=== PATIENT | male | born 1960 | race Caucasian/White ===

== ENCOUNTER → 2016-09-01 | Outpatient (CLI) | payer MEDICARE, OTHER ==
[~2016-09-01] MED LIST: CARV12.52 PO; CLOP75TA PO; ENAL20TA PO; GABA600T2 PO; MELO7.5T29 PO; OXYC-328 PO; ZOLP5TAB PO
--- NOTE | 2016-09-02 02:27 | PAIN ---
DATE OF SERVICE: 09/01/2016 PROGRESS NOTE FOR PAIN CLINIC DIAGNOSES: 1. Post-lumbar laminectomy syndrome, both cervical and lumbar with chronic lumbar radiculopathy. 2. Sacroiliitis on the right. HISTORY OF PRESENT ILLNESS: The patient is a 56-year-old male who returns for followup, last seen in 08/2015. The patient had been undergoing medication management with oxycodone with good results. The patient reported approximately 75% improvement in his pain at that time. The patient reports that he has been fairly inactive over the winter months and end of the spring and had been borrowing his 's oxycodone, which she takes for some other conditions and did not need his medicines refilled until now. The patient reports still significant pain at the low back, bilateral lower extremities, hips, especially more on the right than the left, also some pain in the base of the neck and right upper extremity and shoulder, aching, sharp, shooting, stabbing, burning, tingling and constant. As noted the patient did have K-TRACS reporting showing no prescriptions filled since 09/11/2015, which was from this office as well. The patient does live in [place]; however, but assures me that he has not received any other prescriptions on an outpatient basis. He was hospitalized a few months ago and he had received injections of morphine and oral pain medicines, he is not sure what exactly while he was an inpatient, but not as an outpatient. The patient reports no new motor or sensory deficits, no new bowel or bladder incontinence, still significant pain is noted, rated as a 9 on a scale of 10, 10 being the worse, 6 on a scale of 10 at its least, it is currently at 6 today. PHYSICAL EXAMINATION: VITAL SIGNS: Today, the patient's blood pressure is 145/84, pulse 74, respirations 18, temperature 98.2 degrees Fahrenheit, height is 6 feet, weight is 259 pounds. GENERAL: The patient is awake, alert, oriented, appropriate, very pleasant demeanor. HEENT: Head shows normocephalic, atraumatic. Extraocular movements are intact and symmetrical. Oral cavity shows mucous membranes moist and pink. Dentition is intact. NECK: Shows anterior throat supple without palpable lymphadenopathy noted. Swallow reflex is symmetrical. CHEST: Shows normal on inspection. Breath sounds are clear to auscultation bilaterally. HEART: Shows S1 and S2 clear. No murmurs auscultated. ABDOMEN: Obese, soft, nontender, nondistended. No palpable organomegaly is noted. No rebound or guarding demonstrated. BACK: Shows spine grossly in the midline. Normal appearing thoracic kyphosis and some flattening of lumbar lordotic curvature. Well-healed surgical scar is noted. There is moderate tenderness to palpation throughout the upper, middle and lower distribution of paraspinous muscles in the lumbar distribution without radiation. Cervical paraspinous musculature shows likewise some moderate tenderness with palpation in the superior, medial and lower distribution of the paraspinous muscles as well as in the superior medial trapezius, but without trigger points or radiation. EXTREMITIES: Upper extremity deep tendon reflexes 2+ in the biceps and triceps tendons and lower extremities are 1+ in the patellar tendons. Motor exam is strong with 5/5 xerox machine operator strength, biceps and triceps flexion as well as lower extremity dorsiflexion, extension, quadriceps and hamstring flexion 5/5 and equal. PLAN: Options were discussed with the patient. The patient's old chart was reviewed as his current medication reviewed and updated. Current review of systems updated as well and we discussed starting the patient back on oxycodone at 20 mg strength to be given a 2-month prescription for this with instructions, side effects to be aware of. The patient also will have urinalysis today and renew narcotic contract as his old one is over a year old. The patient understands and agrees. Also discussed weight loss with the patient. He does have a pool at his home and has been doing some water therapy on his own. I encouraged him to increase that and exercise as tolerated, as well as diet and nutritional guidelines. Discussed ____ eating. The patient understands and agrees. Again will have urinalysis drawn today or taken today and the new narcotic contract updated. The patient will follow up in approximately 2 months or sooner if necessary. I gave instruction as well as side effects to be aware with medication. PRAVEEN BANEGAS MD DR: CARMEN/ravi JOB#: [id number] / [id number]
== END | disposition home or self-care (01) ==
LOC: PNCL 13:50
PROVIDERS: ATTEND Anesthesiology
DX: M54.16 Radiculopathy, lumbar region (principal); M54.12 Radiculopathy, cervical region; M46.1 Sacroiliitis, not elsewhere classified; M96.1 Postlaminectomy syndrome, not elsewhere classified
CPT/HCPCS: G0463

== ENCOUNTER → 2016-10-27 | Outpatient (CLI) | payer MEDICARE, OTHER ==
[~2016-10-27] MED LIST changes: +OXYC10TA PO
--- NOTE | 2016-10-27 22:42 | PAIN ---
DATE OF SERVICE: 10/27/2016 PROGRESS NOTE FOR PAIN CLINIC DIAGNOSES: 1. Lumbar radiculopathy with lumbar post-laminectomy syndrome. 2. Post-cervical laminectomy syndrome. HISTORY OF PRESENT ILLNESS: The patient is a 56-year-old male who returns for followup status post medication management with oxycodone. The patient is taking 20 mg of oxycodone up to 4 a day and reports doing very well with this about a 70-80% improvement with medications and no significant side effects. The patient reports no constipation, no sedation. No dizziness, drowsiness, itching or nausea. The patient reports that he does not sleep very well at night, but it is not usually secondary to his pain. He has a lot of things going to his mind that keeps him from sleeping. The patient reports he repositions if it does hurt. His pain occasionally is right side, aches when he lays on it for too long, more than an hour or so, and this will waken him, but he repositions or applies heat or takes pain medication at night and gets back to sleep. The patient reports pain anywhere from a 6 to 9 on a scale of 10, currently it is a 6 today. Describes as aching, sharp, dull, tight, shooting, cramping, stabbing, tingling, burning, essentially constant in the low back, into the right posterior gluteus, posterior hip, also in the neck and shoulders bilaterally, but without any new motor or sensory deficits, without any new bowel or bladder incontinence or other complaints. PAST MEDICAL HISTORY: Significant for diabetes, hypertension, coronary artery disease, headaches. PREVIOUS SURGERY: Includes cervical surgery x 2, lumbar surgery x 2, coronary artery bypass grafting, right knee surgeries x 4, left knee surgery x 1. CURRENT MEDICATIONS: Include oxycodone, meloxicam, Ambien, enalapril, and ____, he is not sure of the name of this [id number]. ALLERGIES: The patient has no known drug allergies. SOCIAL HISTORY: Significant for no smoking, no alcohol. The patient is currently on disability and is not employed. REVIEW OF SYSTEMS: Positive for those items mentioned in history of present illness. All systems reviewed and was updated on the patient's chart as well. PHYSICAL EXAMINATION: VITAL SIGNS: Today, the patient's blood pressure is 134/102, pulse 85, respirations 18, temperature 98.2 degrees Fahrenheit. Height 6 feet, weight is 257 pounds. GENERAL: The patient is awake, alert, oriented, appropriate, very pleasant demeanor. HEENT: Normocephalic, atraumatic. Extraocular movements are intact, symmetrical. Oral cavity, mucous membranes are moist and pink. Dentition is intact. NECK: Shows anterior throat supple without palpable lymphadenopathy noted. Swallow reflex is symmetrical. Neck shows full rotational motion of cervical spine without significant tenderness or difficulty. The patient shows some mild tenderness with palpation in the inferior aspect of the cervical paraspinous musculature, but without significant radiation or trigger points. CHEST: Shows normal on inspection. Breath sounds clear to auscultation bilaterally. HEART: Shows S1 and S2 clear. No murmurs are auscultated. ABDOMEN: Soft, obese, nontender, nondistended. No guarding or rebound is demonstrated. BACK: Shows grossly midline spine, decreased cervical lordotic curvature and lumbar lordotic curvature. Thoracic kyphotic curvature appears normal. The patient has well-healed surgical scar in the lumbar distribution. Lumbar paraspinous musculature shows symmetrical on inspection with palpation shows with some diffuse tenderness bilaterally in the lower lumbar distribution without radiation. The patient shows good rotational motion both laterally as well as extension and flexion without difficulty. EXTREMITIES: Lower extremities and upper extremities deep tendon reflexes show 2+ in the upper and 1+ in the lower extremities. Motor exam is strong with approximately 4 on a scale 5 dorsiflexion and extension, and 5/5 with cut off sawyer log strength, biceps and triceps flexion. Peripheral pulses are 2+ in the radial distribution and 1+ in the posterior tibial and dorsalis pedis peripheral distribution. No edema is noted in any of the extremities. PLAN: Options were discussed with the patient and the patient's old chart was reviewed as his current medication regimen updated as noted. Review of systems updated today as well as noted. We will refill the patient's oxycodone for a 60-day supply 20 mg to take one q. 6 hours on a p.r.n. basis. The patient was given instruction as well as side effects to be aware of with the medication. The patient encouraged to increase activity as well. The patient is using pool therapy and continues to do this on his own. We encouraged this also. The patient will have urinalysis today as he has had appropriate urinalysis to date except for his last visit showed no oxycodone about 2 months ago. The patient was ____ at the time and we did document this last time. We will check this again to make sure as he reports he did take the medication yesterday and this morning and has appropriate K-TRACS to date as well. The patient will follow up in approximately 60 days or sooner if necessary. He was counseled as to activity levels as well as side effects to be aware of with the medication. PRAVEEN BANEGAS MD DR: CARMEN/ravi JOB#: [id number] / [id number]
== END | disposition home or self-care (01) ==
LOC: PNCL 13:00
PROVIDERS: ATTEND Anesthesiology
DX: M54.16 Radiculopathy, lumbar region (principal); M96.1 Postlaminectomy syndrome, not elsewhere classified
CPT/HCPCS: G0463

== ENCOUNTER → 2016-12-28 | Outpatient (CLI) | payer MEDICARE, OTHER ==
[~2016-12-28] MED LIST changes: +acid reflux med
--- NOTE | 2016-12-28 12:36 | PAIN ---
DATE OF SERVICE: 12/28/2016 DIAGNOSES: 1. Post-lumbar laminectomy syndrome. 2. Post-cervical laminectomy syndrome. 3. Lumbar radiculopathy. 4. Right sacroiliitis. HISTORY OF PRESENT ILLNESS: The patient is a 56-year-old male who returns for followup status post medication management with oxycodone 20 mg, the patient taking immediate release up to 4 a day. The patient reports he is doing very well with this very stable regimen with about 75% improvement overall with the medication without significant side effects. No drowsiness, no constipation, no itching, no memory loss, no nausea. The patient reports he still has significant pain in the low back as well as the base of the neck into the right lower extremity. Rates it as a 9 on a scale of 10 at its worst, is a 7 in its least. The patient reports it is aching, sharp, dull, shooting, stabbing, cramping, burning, tingling, radiating and is a constant to some extent, but he has been very active recently, he is mowing a 4 acre piece of land that he has. Also, he has been boating lately and increasing his activity with some increase in pain, but generally well tolerated by his report. The patient reports he sleeps well at night for the most part, about 4 hours at a time. He has to reposition if the pain awakens him, either his neck or his back, and he is able to get back to sleep. The patient reports no new motor or sensory deficits, no new bowel or bladder incontinence or other complaints. PHYSICAL EXAMINATION: VITAL SIGNS: Today, the patient's blood pressure 171/117, pulse 85, respirations 16, temperature 98.5 degrees Fahrenheit. Height is 6 feet 0 inches, weight is 256 pounds. GENERAL: The patient is awake, alert, oriented, appropriate, very pleasant demeanor. HEENT: Head shows normocephalic, atraumatic. Extraocular movements are intact and symmetrical. Oral cavity shows mucous membranes moist and pink. Dentition is intact. NECK: Shows anterior throat supple without palpable lymphadenopathy noted. Swallow reflex is symmetrical. CHEST: Shows normal on inspection. Breath sounds are clear to auscultation bilaterally. HEART: Shows S1 and S2 clear. No murmurs auscultated. ABDOMEN: Soft, obese, nontender, nondistended. BACK: Shows grossly midline spine, some flattening of the cervical lordotic curvature as well as the lumbar lordotic curvature. Well-healed surgical scarring is noted in the lumbar distribution. The patient's paraspinous musculature in the lumbar distribution shows some moderate tenderness to palpation, but only in the middle and lower distribution only diffusely without radiation. Cervical paraspinous musculature shows some mild tenderness with palpation as well. The patient's neck shows full rotational motion of cervical spine, both laterally as well as extension and flexion without significant difficulty. Upper extremities show deep tendon reflexes at 2+ and the lower extremities are 1+ patella and tendo-calcaneus tendons. Motor exam is strong with channel opener strength rated at 5/5 bilaterally. Lower extremities show 4 on a scale of 5 with dorsiflexion, extension, quadriceps and hamstring flexion, but are symmetrical as well. No peripheral edema is noted bilaterally. Peripheral pulses are 2+ in radial distribution and 1+ in the lower extremities. Options were discussed with the patient and the patient's old chart was reviewed as his current medication regimen updated. Current review of systems updated today as well. We will refill the patient's oxycodone at 20 mg up to 4 times daily as needed. The patient was given instruction as well as side effects to be aware of the medication. I encouraged the patient to increase his activity as tolerated. We will continue with pool therapy as he is doing this on his own, also stretching and strengthening exercises daily as well. Again, the patient has had appropriate K-TRACS reporting and a urinalysis repeat last time shows appropriate findings today as well. The patient will follow up in approximately 2 months, was given a 2-month prescription with instructions and side effects to be aware of with the medication. PRAVEEN BANEGAS MD DR: ACRMEN/ravi JOB#: [id number] / [id number]
== END | disposition home or self-care (01) ==
LOC: PNCL 09:49
PROVIDERS: ATTEND Anesthesiology
DX: M54.16 Radiculopathy, lumbar region (principal); M46.1 Sacroiliitis, not elsewhere classified
CPT/HCPCS: G0463

== ENCOUNTER → 2017-02-22 | Outpatient (CLI) | payer MEDICARE, OTHER ==
[~2017-02-22] MED LIST changes: +ASPI-482 PO; +CANA300T PO; +ISOS10TA4 PO; +PRAV10TA2 PO
--- NOTE | 2017-02-23 00:29 | PAIN ---
DATE OF SERVICE: 02/22/2017 PROGRESS NOTE FOR PAIN CLINIC DIAGNOSES: 1. Post-lumbar laminectomy syndrome, lumbar. 2. Cervical post-lumbar laminectomy syndrome. 3. Lumbar radiculopathy. 4. Sacroiliitis. HISTORY OF PRESENT ILLNESS: The patient is a 57-year-old male who returns for followup status post medication management with oxycodone 20 mg taking up to 4 tablets daily with chronic pain syndrome is noted. The patient reports he is doing very well with this and had a very stable regimen of medication. No significant side effects. The patient reports no new changes or findings. He did have 3 new cardiac stents placed in his last visit; however, he does have some angina at home. He now has by his report 15 cardiac stents. He is back on Plavix for this as well from his production honing machine operator. The patient reports otherwise doing fairly well, some neck pain and some low back pain as previously, but again very well controlled with the oxycodone to about an 80% improvement level. The patient reports pain is 7 on a scale 10 at its worst and at its average and at its least and is a 7 today. Reports it wakes him from sleep about every 4 hours but not awaken him from sleep every night. The patient reports no new motor or sensory deficits. No new bowel or bladder incontinence or other complaints. The patient had appropriate K-TRACS reporting as well as appropriate urinalysis to date. We will obtain a urinalysis to date as well. PHYSICAL EXAMINATION: VITAL SIGNS: The patient's blood pressure is 119/62, pulse 67, respirations are 18, temperature 98.2 degrees Fahrenheit, height 6 feet and weight is 256 pounds. GENERAL: The patient is awake, alert, oriented, appropriate and very pleasant demeanor accompanied by his spouse. HEENT: Head shows normocephalic and atraumatic. Extraocular movements are intact, symmetrical. Oral cavity, mucous membranes moist and pink. Dentition is intact. NECK: Shows anterior throat supple without palpable lymphadenopathy noted. Swallow reflex symmetrical. CHEST: Shows normal with inspection. Breath sounds are clear to auscultation bilaterally. HEART: Shows S1 and S2 clear. No murmurs auscultated. ABDOMEN: Soft, nontender and nondistended. No palpable organomegaly is noted. No rebound or guarding demonstrated. BACK: Shows spine grossly in the midline. Slight exaggeration of thoracic kyphosis, some flattening of the cervical lordotic curvature and lumbar lordotic curvature on inspection. With palpation, cervical paraspinous muscle shows some moderate tenderness but only diffusely in the inferior aspect of the cervical paraspinous muscles as well as the superior medial trapezius, slightly more on the right than the left into the lateral trapezius but without trigger points. Full rotational motion of the cervical spine, both laterally greater than 45 degrees, full extension, full forward flexion without significant pain reported. Low back shows good rotation as well, both laterally greater than 10 degrees, right and left as well as extension and flexion without significant pain reported and some mild tenderness with extension only. EXTREMITIES: Show deep tendon reflexes, upper extremity 2+, lowers are 1+ in the patellar and tendo calcaneus tendons. Motor exam is strong with oracle financial application developer strength rated at 5/5 as is bicep and tricep flexion. Lower extremities show about 4-5 and equal and symmetrical dorsiflexion and extension bilaterally. Peripheral pulses are 2+ radial and 1+ posterior tibial. No peripheral edema is noted in the extremities, upper or lower bilaterally. Options were discussed with the patient. The patient's old chart was reviewed as well as his current medication regimen updated. Current review of systems updated today as well. We will refill the patient's oxycodone 20 mg up to 4 times daily as prescribed. The patient has done again very well with this, had appropriate K-TRACS reporting, appropriate urinalysis to date. We will check a urinalysis today as well as routine screening. The patient will return to clinic in approximately 2 months, was given instruction as well as side effects to aware with medication. Also, encouraged to increase activity as tolerated and with his clearance from his production honing machine operator. PRAVEEN BANEGAS MD DR: CARMEN/ravi JOB#: [id number] / [id number]
== END | disposition home or self-care (01) ==
LOC: PNCL 10:57
PROVIDERS: ATTEND Anesthesiology
DX: M54.16 Radiculopathy, lumbar region (principal); M46.1 Sacroiliitis, not elsewhere classified; Z95.5 Presence of coronary angioplasty implant and graft
CPT/HCPCS: G0463

== ENCOUNTER → 2017-04-19 | Outpatient (CLI) | payer MEDICARE, OTHER | END | disposition home or self-care (01) | LOC: PNCL 11:35 | DX: M54.16 Radiculopathy, lumbar region (principal); M46.1 Sacroiliitis, not elsewhere classified | CPT/HCPCS: G0463 ==

== ENCOUNTER → 2017-06-14 | Outpatient (CLI) | payer MEDICARE, OTHER | END | disposition home or self-care (01) | LOC: PNCL 11:17 | DX: M54.16 Radiculopathy, lumbar region (principal); M96.1 Postlaminectomy syndrome, not elsewhere classified; M46.1 Sacroiliitis, not elsewhere classified; Z79.82 Long term (current) use of aspirin; Z79.899 Other long term (current) drug therapy | CPT/HCPCS: G0463 ==

== ENCOUNTER → 2017-08-09 | Outpatient (CLI) | payer MEDICARE, OTHER | END | disposition home or self-care (01) | LOC: PNCL 11:08 | DX: M54.16 Radiculopathy, lumbar region (principal); M46.1 Sacroiliitis, not elsewhere classified; I25.2 Old myocardial infarction; Z79.02 Long term (current) use of antithrombotics/antiplatelets | CPT/HCPCS: G0463 ==

== ENCOUNTER → 2017-10-11 | Outpatient (CLI) | payer MEDICARE, OTHER | END | disposition home or self-care (01) | LOC: PNCL 12:46 | DX: M54.16 Radiculopathy, lumbar region (principal); M46.1 Sacroiliitis, not elsewhere classified | CPT/HCPCS: G0463 ==

== ENCOUNTER → 2017-11-29 | Outpatient (CLI) | payer MEDICARE, OTHER ==
[~2017-11-29] MED LIST changes: +TICA90TA PO
--- NOTE | 2017-11-30 00:34 | PAIN ---
DATE OF SERVICE: 11/29/2017 PROGRESS NOTE FOR PAIN CLINIC DIAGNOSES: 1. Post-lumbar laminectomy syndrome with lumbar radiculopathy. 2. Post-cervical laminectomy syndrome. 3. Right sacroiliitis. HISTORY OF PRESENT ILLNESS: The patient is a 57-year-old male who returns for followup status post medication management with oxycodone 20 mg, has been taking up to 4 at least a day for an extended period of time and he does very well with these, has been on a very stable regimen. Reports pain is still significant in the low back, mid back as well as the neck and shoulders but better controlled with the medication. The patient reports it is an 8 on a scale of 10 at its worst, 7 on average, 6 at its least and is a 6 today. The patient reports no side effects with the medication. He has recently finished some therapy on recommendation of his master data analyst that is [facility] therapy and he feels he has increased energy. His shortness of breath is better and generally has more energy and has better interest in activity as well. The patient reports he still has difficulty sleeping at night, does awaken him from sleep about 3-4 times at night with the pain mainly in the low back. He can usually get up and sit in the hot tub, which helps as well as using a heating pad. The patient reports no new motor or sensory deficits and no new bowel or bladder incontinence or other complaints. Again, no side effects with the medication. The patient describes the pain as aching, sharp, tight, shooting, tingling, burning, cramping, stabbing and constant. PHYSICAL EXAMINATION: VITAL SIGNS: Today, his blood pressure is 132/91, pulse 81, respirations 16, temperature 97.2 degrees Fahrenheit, height is 6 feet 0 inches and weight is 257 pounds. GENERAL: The patient is awake, alert, oriented, appropriate and very pleasant demeanor. HEENT: Head shows normocephalic and atraumatic. Extraocular movements are intact and symmetrical. Oral cavity: Mucous membranes are moist and pink. Dentition is intact. NECK: Shows anterior throat supple without palpable lymphadenopathy noted. Swallow reflex symmetrical. CHEST: Shows normal on inspection. Breath sounds are clear bilaterally. HEART: Shows S1 and S2 clear. No murmurs auscultated. ABDOMEN: Obese, soft, nontender and nondistended. No palpable organomegaly is noted. BACK: Shows spine grossly in the midline, slight exaggerated thoracic kyphosis, some minor flattening of lumbar lordotic curvature. Well healed surgical scar is noted in the lumbar distribution. Cervical paraspinous muscle shows symmetrical on inspection, on palpation shows some mild tenderness in the inferior aspect of the cervical paraspinous musculature as well as the superior medial trapezius bilaterally but only diffusely without radiation. The patient has good rotational motion of the cervical spine, both laterally as well as extension and flexion without significant pain reported. Lumbar paraspinous musculature shows symmetrical with moderate tenderness diffusely in the upper, middle and lower distribution of the paraspinous muscle but only diffusely without radiation as well. The patient shows good rotational motion of the lumbar spine laterally as well as extension and flexion without significant difficulty. EXTREMITIES: Lower extremities show deep tendon reflexes at 1+ in the patellar and tendo-calcaneus tendons. Motor exam is strong with dorsiflexion, extension rated 4-5 but equal and symmetrical bilaterally. Peripheral pulses are 1+ posterior tibial. No peripheral edema is noted. Options were discussed with the patient. The patient's old chart was reviewed as well as his current medication regimen updated. Current review of systems updated today as well and we will refill the patient's oxycodone at 20 mg for a 2-month period. The patient has had appropriate K-TRACS reporting as well as appropriate urinalysis to date and we will refill the patient's medications with instructions, side effects to be aware of for a 2-month period. The patient will follow up at that time or sooner if necessary. PRAVEEN BANEGAS MD DR: CARMEN/ravi JOB#: [id number] / [id number]
== END | disposition home or self-care (01) ==
LOC: PNCL 12:53
PROVIDERS: ATTEND Anesthesiology
DX: M54.16 Radiculopathy, lumbar region (principal); M46.1 Sacroiliitis, not elsewhere classified; M96.1 Postlaminectomy syndrome, not elsewhere classified; I25.2 Old myocardial infarction; Z95.5 Presence of coronary angioplasty implant and graft
CPT/HCPCS: G0463

== ENCOUNTER → 2018-01-22 | Outpatient (CLI) | payer MEDICARE, OTHER ==
--- NOTE | 2018-01-23 01:01 | PAIN ---
DATE OF SERVICE: 01/22/2018 PROGRESS NOTE FOR PAIN CLINIC DIAGNOSES: 1. Post lumbar laminectomy syndrome with lumbar radiculopathy. 2. Post-cervical laminectomy syndrome. HISTORY OF PRESENT ILLNESS: The patient is a 58-year-old male who returns for followup status post medication management with oxycodone 20 mg. The patient has been doing very well, has been on a very stable regimen for an extended period of time now and does quite well with the medication without significant side effects. The patient reports his pain is reduced about 70-75% overall with the medication again without side effects from it. He is able to increase his activity of daily living with greater ease and comfort. He reports he has been walking greater distances, has been doing household activities as well as recreational activities with much greater ease as well as traveling. The patient has recently been to [facility] without significant increase in pain from the trip. The patient reports his pain is at a 9 on a scale of 10 at its worst, 7 on average, 7 at its least and is a 7 today in the low back, bilateral lower extremities, also in the base of the neck, shoulders and right upper extremity. The patient reports it is an aching, sharp, dull, tight, shooting, stabbing, cramping, burning, tingling and becoming more radiating and somewhat more constant with activity. Again well controlled with the medication without significant side effects. PHYSICAL EXAMINATION: VITAL SIGNS: The patient's blood pressure is 117/82, pulse 77, respirations are 18, temperature 98.0 degrees Fahrenheit, height is 6 feet and weight is 255 pounds. GENERAL: The patient is awake, alert, oriented, appropriate, very pleasant demeanor. The patient is accompanied by his spouse. HEENT: Head shows normocephalic and atraumatic. Extraocular movements are intact and symmetrical. Oral cavity: Mucous membranes are moist and pink. Dentition is intact. NECK: Shows anterior throat is supple without palpable lymphadenopathy noted. Swallow reflex symmetrical. CHEST: Shows normal on inspection. Breath sounds are clear to auscultation bilaterally. HEART: Shows S1 and S2 clear. No murmurs are auscultated. ABDOMEN: Soft, nontender and nondistended. No palpable organomegaly is noted. No rebound or guarding demonstrated. BACK: Shows spine grossly in the midline. Slight exaggeration of the thoracic kyphosis and some mild flattening of the lumbar lordotic curvature. Lumbar paraspinous muscle shows symmetrical on inspection. On palpation shows some moderate tenderness, but only diffusely without radiation. The patient has good rotational motion of the lumbar spine, both laterally as well as extension and flexion without significant pain reported with some minor tenderness over the right sacroiliac region, but only minor without radiation. EXTREMITIES: Lower extremities show deep tendon reflexes at 1+ in the patellar and tendo-calcaneus tendons. Motor exam is approximately 4 on a scale of 5, but equal and symmetrical bilaterally. Options were discussed with the patient. The patient's old chart was reviewed as was his current medication regimen updated. Current review of systems updated today as well. We will refill the patient's oxycodone for 2 months. The patient had appropriate K-TRACS reporting as well as appropriate urinalysis to date. The patient was given instructions as well as side effects to be aware of with the medication. We will follow up in approximately 2 months as scheduled. PRAVEEN BANEGAS MD DR: CARMEN/ravi JOB#: [id number] / [id number]
== END | disposition home or self-care (01) ==
LOC: PNCL 11:32
PROVIDERS: ATTEND Anesthesiology
DX: M54.16 Radiculopathy, lumbar region (principal); M96.1 Postlaminectomy syndrome, not elsewhere classified
CPT/HCPCS: G0463

== ENCOUNTER → 2018-04-02 | Outpatient (CLI) | payer MEDICARE, OTHER ==
[~2018-04-02] MED LIST changes: +CARV12.511 PO; -CARV12.52 PO; +ESOM20CA PO; -OXYC-328 PO; +OXYC1TAB22 PO
--- NOTE | 2018-04-02 20:17 | PAIN ---
DATE OF SERVICE: 04/02/2018 PROGRESS NOTE FOR PAIN CLINIC DIAGNOSES: 1. Lumbar post-laminectomy syndrome with lumbar radiculopathy. 2. Cervical post-laminectomy syndrome. 3. Right sacroiliitis. HISTORY OF PRESENT ILLNESS: The patient is a 58-year-old male who returns for followup status post medication management with oxycodone 20 mg. The patient reports he has been doing very well with this very stable regimen. The patient reports he is still having no significant side effects with about a 70% improvement overall from the medication. The patient has had appropriate K-TRACS reporting as well as appropriate urinalysis to date. The patient reports still some pain in the low back as well as the base of the neck and shoulders and have some on the right hand as well as some tingling. The patient reports otherwise his back and neck, aching, sharp, dull, tight, shooting and sometimes has been tingling in the right hand, burning in the neck, stabbing in the low back becoming more constant with activity. The patient reports it is better with sitting or lying down, does have difficulty sleeping recently because of the pain in the neck. The patient reports his pain is a 9 on a scale of 10 at its worst, 7 on average, 6 at its least and is a 7 today. The patient reports no new motor or sensory deficits. Again, no side effects with the medication and no new bowel or bladder incontinence or other complaints. PHYSICAL EXAMINATION: VITAL SIGNS: The patient's blood pressure is 151/105, pulse 88, respirations 16 and temperature 98.2 degrees Fahrenheit. Height 6 feet and weight is 259 pounds. GENERAL: The patient is awake, alert, oriented, appropriate and very pleasant demeanor. HEENT: Head shows normocephalic and atraumatic. Extraocular movements are intact and symmetrical. Oral cavity: Mucous membranes moist and pink. Dentition is intact. NECK: Shows anterior throat supple without palpable lymphadenopathy noted. Swallow reflex symmetrical. CHEST: Shows normal with inspection. Breath sounds clear to auscultation bilaterally. HEART: Shows S1 and S2 clear. No murmurs auscultated. ABDOMEN: Soft, nontender and nondistended. No palpable organomegaly is noted. No rebound or guarding demonstrated. BACK: Shows spine grossly in the midline. Slight exaggeration of the thoracic kyphosis and some mild lumbar flattening in lumbar distribution with well-healed surgical scar noted. Cervical paraspinous muscle shows symmetrical on inspection, with palpation shows some moderate tenderness only diffusely in the cervical paraspinous musculature bilaterally. The patient has full rotational motion both extension and flexion in the right and left lateral with the cervical spine. The patient's lumbar spine shows symmetrical on inspection, paraspinous musculature is moderately tender with palpation in the middle and lower distribution of the paraspinous muscles without radiation, without trigger points. The patient does show good rotation both laterally as well as extension and flexion 10 degrees and forward flexion 45 degrees in the lumbar spine without significant increase in pain. EXTREMITIES: The patient's upper extremities show deep tendon reflexes at 2+ in the biceps, triceps tendons. Lower extremities are 1+ patellar and tendo-calcaneus tendons. Motor exam is approximately 4 on a scale of 5 with pediatric dermatologist strength, bicep and tricep flexion equal and symmetrical bilaterally. Options were discussed with the patient. The patient's old chart was reviewed as well as his current medication regimen updated. Current review of systems updated today as well. We will proceed with refill the patient's oxycodone 20 mg. The patient has had again appropriate K-TRACS reporting as well as appropriate urinalysis to date. We will give him a 2-month prescription with instructions, side effects to be aware of discussed with the medication. Also, refill Ambien, he is taking 10 mg at night for sleep. Reports it does help significantly without any hangover effect the next day. Again, the patient will follow up in approximately 2 months or sooner if necessary. We will have new urinalysis today as well as a new narcotic contract and the patient will be given a copy of this as well. PRAVEEN BANEGAS MD DR: CARMEN/ravi JOB#: [id number] / [id number]
== END | disposition home or self-care (01) ==
LOC: PNCL 14:04
PROVIDERS: ATTEND Anesthesiology
DX: M54.16 Radiculopathy, lumbar region (principal); M96.1 Postlaminectomy syndrome, not elsewhere classified; M46.1 Sacroiliitis, not elsewhere classified
CPT/HCPCS: G0463

== ENCOUNTER → 2018-05-28 | Outpatient (CLI) | payer MEDICARE, OTHER ==
[~2018-05-28] MED LIST changes: -GABA600T2 PO; +GABA600T7 PO
--- NOTE | 2018-05-29 01:21 | PAIN ---
DATE OF SERVICE: 05/28/2018 DIAGNOSES: 1. Post lumbar laminectomy syndrome with both lumbar and cervical. 2. Lumbar radiculopathy. 3. Right sacroiliitis. HISTORY OF PRESENT ILLNESS: The patient is a 58-year-old male who returns for followup status post medication management with oxycodone as well as Ambien for sleep. The patient reports he is doing quite well with this, has been on very stable regimen. Still has some increased pain in his low back and leg. He was at a show over the weekend where he was walking extended period of time and standing for an extended period of time and that this did increase his pain and flared up quite a bit. On Monday, he was doing better. Today, he is beginning to walk more easily and has got pain under control. The patient reports still good, about 75-80% improvement with medications alone, without significant side effects. The patient reports pain is 9 on a scale of 10 at its worst, 7 on average, 6 at its least and is 6 today. Describes his pain in the back and legs as well as the neck and right shoulder, aching, sharp, dull, shooting, stabbing, cramping, burning, tingling, radiating, constant at times with walking and standing, especially over the weekend with his low back. The patient reports it still awakens him from sleep at night about every 4 hours even with the Ambien. The patient reports no new motor or sensory deficits, no new changes. PHYSICAL EXAMINATION: VITAL SIGNS: The patient's blood pressure is 148/93, pulse 83, respirations 18, temperature 98.3 degrees Fahrenheit. Height is 6 feet, weight is 258 pounds. GENERAL: The patient is awake, alert, oriented, appropriate, very pleasant demeanor. HEENT: Head is normocephalic, atraumatic. Extraocular movements intact and symmetrical. Oral cavity: Mucous membranes moist and pink. Dentition intact. NECK: Shows anterior throat supple without palpable lymphadenopathy noted. Swallow reflex is symmetrical. CHEST: Shows normal on inspection. Breath sounds are clear to auscultation bilaterally. HEART: Shows S1, S2 clear. No murmurs auscultated. ABDOMEN: Soft, nontender, nondistended. No palpable organomegaly is noted. No rebound or guarding demonstrated. BACK: Showed spine grossly in midline. Normal appearing thoracic kyphosis and some minor flattening of lumbar lordotic curvature. Well-healed surgical scar is noted in the lumbar distribution. Lumbar paraspinous muscle shows symmetrical on inspection, on palpation shows some moderate tenderness, but only diffusely without radiation. The patient has good rotational motion with the neck as well as the low back, some minor pain reported in the base of the neck on the right side. EXTREMITIES: Upper extremity deep tendon reflexes 2+ in the biceps and triceps tendons. Motor exam is strong with telephone repairer strength rated 5/5 and equal. Peripheral pulses are 2+ radial distribution. Lower extremities show deep tendon reflexes 1+ patellar and tendo calcaneus tendons. Motor exam is strong with 5/5 and equal. Options were discussed with the patient. The patient's old chart was reviewed as was his current medication regimen updated. Current review of systems updated today as well. We will refill the patient's oxycodone and Ambien for a 2-month period. The patient has had appropriate K-TRACS reporting as well as appropriate urinalysis to date. We will make this a 2-month prescription. The patient was given instruction as well as side effects to be aware of each of the medications and will follow in approximately 2 months or sooner if necessary. PRAVEEN BANEGAS MD DR: CARMEN/ravi JOB#: [id number] / [id number]
== END | disposition home or self-care (01) ==
LOC: PNCL 12:43
PROVIDERS: ATTEND Anesthesiology
DX: M96.1 Postlaminectomy syndrome, not elsewhere classified (principal); M54.16 Radiculopathy, lumbar region; M46.1 Sacroiliitis, not elsewhere classified
CPT/HCPCS: G0463

== ENCOUNTER → 2018-07-23 | Outpatient (CLI) | payer MEDICARE, OTHER ==
--- NOTE | 2018-07-24 07:22 | PAIN ---
DATE OF SERVICE: 07/23/2018 Progress Note DIAGNOSES: 1. Post-lumbar laminectomy syndrome with lumbar radiculopathy. 2. Post-cervical laminectomy syndrome. 3. Right sacroiliitis. HISTORY OF PRESENT ILLNESS: The patient is a 58-year-old male who returns for followup status post medication management with oxycodone at 20 mg. The patient reports he has been doing very well with this and is very stable regimen without any significant side effects. The patient reports occasional constipation, but only very rarely. The patient reports he is doing fairly well with increased activity with greater ease and comfort, doing recreational activities, as well as work around the house and traveling with greater ease and comfort as well. The patient reports it awakens him from sleep occasionally, usually about every 4-5 hours. He can generally get back to sleep after repositioning. The patient reports his pain is a 9 on a scale of 10 at its worst, 7 on average, 7 at its least and is a 7 today. The patient reports it is aching, sharp, dull, tight, shooting, tingling, burning, stabbing, constant at times, radiating to the low back, right lower extremity, as well as the base of the neck and shoulders, some on the right arm. The patient also reports some tingling and numbness in both hands, somewhat more on the right, left worse at night. The patient reports no new motor or sensory deficits, no new changes, no new side effects with this medication. PHYSICAL EXAMINATION: VITAL SIGNS: He had blood pressure 119/85, pulse 79, respirations 18, temperature is 98.5 degrees Fahrenheit, height is 6 feet, weight is 248 pounds. GENERAL: The patient is awake, alert, oriented, appropriate, very pleasant demeanor. HEENT: Shows normocephalic, atraumatic. Extraocular movements are intact and symmetrical. Oral cavity: Mucous membranes are moist and pink. Dentition is intact. NECK: Shows anterior throat supple without palpable lymphadenopathy noted. Swallow reflex symmetrical. CHEST: Shows normal on inspection. Breath sounds clear to auscultation bilaterally. HEART: Shows S1, S2 clear. No murmurs auscultated. ABDOMEN: Soft, obese, nontender, nondistended. No palpable organomegaly is noted. No rebound or guarding demonstrated. BACK: Shows spine grossly in the midline. Normal appearing thoracic kyphosis and minor flattening of lumbar lordotic curvature. Lumbar paraspinous muscle shows symmetrical with inspection, on palpation shows some mild tenderness throughout the upper, middle, lower distribution of paraspinous muscles, but only diffusely without radiation. The patient has good rotational motion of lumbar spine, both laterally, as well as extension and flexion without significant difficulty. EXTREMITIES: The patient's lower extremities show deep tendon reflexes, 1+ in the patellar and tendo calcaneus tendons. Motor exam is strong with 5/5 dorsiflexion, extension and symmetrical. Peripheral pulses are 1+, posterior tibia. No peripheral edema is noted. ASSESSMENT AND PLAN: Options were discussed with the patient. The patient's old chart was reviewed, as well as current medications updated. Current review of systems updated today as well. We will refill the patient's medications for 2-month period. The patient has had appropriate K-TRACS reporting, as well as appropriate urinalysis to date. The patient was given instruction, as well as side effects to be aware of with each of the medications. We will follow up in approximately 2 months or sooner as necessary. PRAVEEN BANEGAS MD DR: CARMEN/ravi JOB#: [id number] / [id number]
== END | disposition home or self-care (01) ==
LOC: PNCL 13:10
PROVIDERS: ATTEND Anesthesiology
DX: M54.16 Radiculopathy, lumbar region (principal); M46.1 Sacroiliitis, not elsewhere classified; M96.1 Postlaminectomy syndrome, not elsewhere classified
CPT/HCPCS: G0463

== ENCOUNTER → 2018-09-17 | Outpatient (CLI) | payer MEDICARE ==
--- NOTE | 2018-09-17 17:17 | PAIN ---
DATE OF SERVICE: 09/17/2018 DIAGNOSES: 1. Lumbar post-laminectomy syndrome with lumbar radiculopathy. 2. Cervical radiculopathy and cervical post-laminectomy syndrome. 3. Right sacroiliitis. HISTORY OF PRESENT ILLNESS: The patient is a 58-year-old male who returns for followup status post medication management with oxycodone and Ambien. The patient did very well with this, has been on a very stable regimen of 20 mg oxycodone up to 4 daily. The patient has had no new motor or sensory deficits, no new changes. No side effects of the medication. Reports about a 70% improvement overall with the pain in his back and leg. He has been more active lately, has been opening his pool at his house, having some trouble getting the filters correct and the water clear, but otherwise has been increasing his activity from that and otherwise is doing overall fairly steady with his medication and with his pain level. The patient reports it has been higher with his increased activity recently in the low back and especially in the right lower extremity, posterior gluteus, posterior thigh, posterior calf, but reports it is fairly well controlled with the medication without significant side effects. The patient reports it is an 8 on a scale of 10 at its worst over the past week, 8 on average, 7 at its least and is an 8 today. He reports it as aching, sharp, dull, tight, shooting, tingling, burning, cramping in the right leg, also some pain in the neck and shoulder and right upper extremity, which can be constant with activity in the low back and leg. The patient reports no new motor or sensory deficits. Reports he is sleeping fairly well at night with the Ambien, but still wakes about every 4 hours or so. PHYSICAL EXAMINATION: VITAL SIGNS: The patient's blood pressure 138/92, pulse 84, respirations are 18, temperature is 98.2 degrees Fahrenheit. His height is 6 feet, weight is 260 pounds. GENERAL: The patient is awake, alert, oriented, appropriate, very pleasant demeanor. HEENT: Shows normocephalic, atraumatic. Extraocular movements are intact and symmetrical. Oral cavity: Mucous membranes moist and pink. Dentition is intact. NECK: Shows anterior throat supple without palpable lymphadenopathy noted. Swallow reflex symmetrical. CHEST: Shows normal with inspection. Breath sounds are clear to auscultation bilaterally. HEART: Shows S1, S2 clear. Well-healed surgical scar is noted. ABDOMEN: Obese, soft, nontender, nondistended. No palpable organomegaly is noted. No rebound or guarding demonstrated. BACK: The patient's back shows spine grossly in the midline, normal-appearing cervical lordotic curvature, increased thoracic kyphotic curvature, some minor flattening of lumbar lordotic curvature. Lumbar paraspinous muscle shows symmetrical on inspection, on palpation has some moderate tenderness without any radiation. EXTREMITIES: Peripheral pulses are 1+ posterior tibia. No peripheral edema is noted. Options were discussed with the patient. The patient's old chart was reviewed as his current medication regimen updated. Current review of systems updated today as well. We will proceed with refill of the patient's oxycodone as well as Ambien. The patient has appropriate K-TRACS reporting as well as appropriate urinalyses to date. We will refill this for a 2-month period. The patient was given instruction as well as side effects to be aware of with the medication. Follow up with us in 2 months or sooner as necessary. PRAVEEN BANEGAS MD DR: CARMEN/ravi JOB#: [id number] / [id number]
== END | disposition home or self-care (01) ==
LOC: PNCL 13:08
PROVIDERS: ATTEND Anesthesiology
DX: M96.1 Postlaminectomy syndrome, not elsewhere classified (principal); M54.16 Radiculopathy, lumbar region; M54.12 Radiculopathy, cervical region; M46.1 Sacroiliitis, not elsewhere classified
CPT/HCPCS: G0463

== ENCOUNTER → 2018-12-10 | Outpatient (CLI) | payer MEDICARE ==
[~2018-12-10] MED LIST changes: +CRESTOR5 MG PO; +ENAL5TAB PO; +EVOL140S SQ; +EZET10TA20 PO; +GABA300C18 PO; +METF500T16 PO; +METO-247 PO; +NIFE30TA2 PO; +NITR0.4T22 SL; +RANO500T2 PO; +SEMA0.25 SQ; +imdur
--- NOTE | 2018-12-10 23:58 | PAIN ---
DATE OF SERVICE: 12/10/2018 PROGRESS NOTE FOR PAIN CLINIC DIAGNOSES: 1. Post-lumbar laminectomy syndrome with lumbar radiculopathy. 2. Post-cervical laminectomy syndrome. 3. Right sacroiliitis. HISTORY OF PRESENT ILLNESS: The patient is a 58-year-old male who returns for followup status post medication management with oxycodone and Ambien for sleep. The patient reports that he has been doing very well with this very stable regimen of oxycodone 20 mg. The patient reports no significant side effects, no new changes. He has been doing very well. He has been very stable, has been traveling some lately with greater ease and comfort, also doing daily activities, walking with greater ease as well. The patient reports some pain in the left lower extremity, which has increased with walking, but otherwise doing fairly well. The patient reports some numbness in the left foot as well. It wakes him from sleep occasionally, but not every night. The patient reports the pain is a 9 on a scale of 10 at its worst in the past week, 7 on average, 6 at its least and is a 7 today. The patient reports it is aching, sharp, dull, tight, shooting, cramping, stabbing, sometimes constant, radiating in the left leg, but overall doing fairly well and reports that the medication does decrease the pain which is very tolerable. The patient reports no new motor or sensory deficits, no new bowel or bladder incontinence or other complaints. PHYSICAL EXAMINATION: VITAL SIGNS: The patient's blood pressure is 130/91, pulse 83, respirations 16, temperature 98.5 degrees Fahrenheit, height 6 feet, weight is 249 pounds. GENERAL: The patient is awake, alert, oriented, appropriate, very pleasant demeanor. HEENT: Shows normocephalic, atraumatic. Extraocular movements are intact and symmetrical. Oral cavity: Mucous membranes moist and pink. Dentition is intact. NECK: Shows anterior throat supple without palpable lymphadenopathy noted. Swallow reflex symmetrical. Neck shows full rotational motion of the cervical spine without difficulty. CHEST: Shows normal on inspection. Breath sounds are clear bilaterally. HEART: Shows S1, S2 clear. No murmurs auscultated. ABDOMEN: Soft, obese, nontender, nondistended. No palpable organomegaly is noted. No rebound or guarding demonstrated. BACK: Shows spine grossly in the midline. Slight exaggeration of thoracic kyphosis and flattening of lumbar lordotic curvature with well-healed surgical scar noted. Lumbar paraspinous muscle shows symmetrical on inspection, on palpation shows some mild tenderness but only in the low lumbar distribution, but only diffusely without radiation or trigger points. The patient has good rotational motion of the lumbar spine as well. Greater than 10 degrees right and left as well as extension greater than 10 degrees, forward flexion 45 degrees without significant pain reported. EXTREMITIES: Lower extremities show deep tendon reflexes at 1+ in the patellar and tendo-calcaneus tendons. Motor exam is strong with 5/5 dorsiflexion, extension and symmetrical. Peripheral pulses are 1+ posterior tibia. No peripheral edema is noted. Upper extremities show deep tendon reflexes 2+ in the biceps and triceps tendons. Motor exam is strong with roll picker strength rated at 5/5 as is bicep and tricep flexion. Peripheral pulses are 2+ radial. No peripheral edema is noted as well in upper extremities. Options were discussed with the patient. The patient's old chart was reviewed as his current medication regimen updated. Current review of systems updated today as well. We will refill the patient's oxycodone 20 mg with instructions, side effects to be aware of for 2-month period. The patient had appropriate K-TRACS reporting as well as appropriate urinalysis to date. We will refill this for 2-month period. The patient will return to the clinic in approximately 2 months or sooner if necessary. Also, refill the patient's Ambien to take once at bedtime with instructions, side effects to be aware of as well. PRAVEEN BANEGAS MD DR: CARMEN/ravi JOB#: [id number] / [id number]
== END | disposition home or self-care (01) ==
LOC: PNCL 13:09
PROVIDERS: ATTEND Anesthesiology
DX: M54.16 Radiculopathy, lumbar region (principal); M96.1 Postlaminectomy syndrome, not elsewhere classified; M46.1 Sacroiliitis, not elsewhere classified
CPT/HCPCS: G0463

== ENCOUNTER → 2019-02-06 | Outpatient (CLI) | payer MEDICARE ==
--- NOTE | 2019-02-06 15:59 | PAIN ---
DATE OF SERVICE: 02/06/2019 PROGRESS NOTE FOR PAIN CLINIC DIAGNOSES: 1. Post-lumbar laminectomy syndrome, both lumbar and cervical. 2. Lumbar radiculopathy of the right and right sacroiliitis. HISTORY OF PRESENT ILLNESS: The patient is a 59-year-old male who returns for followup status post medication management with oxycodone 20 mg. The patient reports he is doing fairly well with this with no new changes, no new side effects. The patient reports he has been on fairly stable regimen, feels the pain is well controlled throughout the day for the most part about a 75-80% improvement overall. The patient reports again no specific side effects, occasional constipation, but very rare. The patient reports it has been awakening him from sleep lately in his low back as well as the base of the neck, but very tolerable. He usually sleeps about 7-8 hours a night. The patient reports the pain is aching, sharp, dull, tight, shooting, tingling, burning, cramping, stabbing at times, radiating, constant at times. The patient reports it is an 8 on a scale of 10 at its worst over the past week with increased activity, 6 on average and 6 out of 10 at its least and is 6 today. The patient reports he is having some numbness and tingling in both of his hands. He has had some carpal tunnel syndrome diagnosed in the past, but was only treated with braces which did not help significantly. Otherwise, the patient is doing well. No new motor or sensory deficits or other concerns. PHYSICAL EXAMINATION: VITAL SIGNS: The patient's blood pressure 123/80, pulse 87, respirations 16, temperature 98.1 degrees Fahrenheit, weight is 244 pounds. GENERAL: The patient is awake, alert, oriented, appropriate, very pleasant demeanor. HEENT: Shows normocephalic, atraumatic. Extraocular movements are intact and symmetrical. Oral cavity: Mucous membranes moist and pink. Dentition is intact. NECK: Shows anterior throat supple without palpable lymphadenopathy noted. Swallow reflex symmetrical. CHEST: Shows normal on inspection. Breath sounds are clear to auscultation bilaterally. HEART: Shows S1, S2 clear. No murmurs auscultated. ABDOMEN: Soft, nontender, nondistended, obese. No palpable organomegaly is noted. BACK: Shows spine grossly in the midline. Normal appearing thoracic kyphosis, cervical lordotic curvature and some slight flattening of lumbar lordotic curvature. Cervical paraspinous muscle shows symmetrical on inspection, on palpation shows some moderate tenderness diffusely bilaterally, but only diffusely without significant radiation. The patient has good rotational motion of cervical spine, both laterally as well as extension and flexion without difficulty. Low back shows moderate tenderness with palpation diffusely in the low lumbar distribution only without specific radiation, without trigger points. The patient shows good rotational motion of lumbar spine, both laterally as well as extension and flexion without significant difficulty. EXTREMITIES: Upper extremities show deep tendon reflexes 1+ in the biceps and triceps tendons. Motor exam is strong with 5/5 pulley maintainer strength, bicep and tricep flexion. Lower extremities show deep tendon reflexes 1+ patellar and tendo calcaneus tendons. Motor exam is strong with dorsiflexion, extension, quadriceps and hamstring flexion equal and 5/5 bilaterally. Peripheral pulses are 2+ radial, 1+ posterior tibia. No peripheral edema is noted bilaterally. Options were discussed with the patient. The patient's old chart was reviewed as his current medication regimen updated. Current review of systems updated today as well. We will refill the patient's oxycodone 20 mg as well as Ambien for sleep. The patient was given instruction as well as side effects to be aware of each of the medications. The patient had appropriate K-TRACS reporting as well as appropriate urinalysis to date. We will have the urinalysis taken today as routine screening and also a new narcotic contract updated with the patient was given a copy of this as well. The patient was given instruction as well as side effects to be aware of with each of the medications and will follow up in approximately 2 months or sooner as necessary. PRAVEEN BANEGAS MD DR: CARMEN/ravi JOB#: [id number] / [id number]
== END | disposition home or self-care (01) ==
LOC: PNCL 12:54
PROVIDERS: ATTEND Anesthesiology
DX: M54.16 Radiculopathy, lumbar region (principal); M46.1 Sacroiliitis, not elsewhere classified; M96.1 Postlaminectomy syndrome, not elsewhere classified
CPT/HCPCS: G0463

== ENCOUNTER → 2019-04-03 | Outpatient (CLI) | payer MEDICARE ==
[~2019-04-03] MED LIST changes: -EVOL140S SQ; +EVOL140S2 SQ
--- NOTE | 2019-04-03 14:06 | PAIN ---
DATE OF SERVICE: 04/03/2019 PROGRESS NOTE FOR PAIN CLINIC DIAGNOSES: 1. Post-lumbar laminectomy syndrome and post-cervical laminectomy syndrome. 2. Lumbar radiculopathy. 3. Right sacroiliitis. HISTORY OF PRESENT ILLNESS: The patient is a 59-year-old male who returns for followup status post medication management with oxycodone and Ambien for sleep. The patient reports he is doing very well, has been on a very stable regimen with medications about 70-80% improvement of the medications overall without any significant side effects. The patient reports no excessive sedation, no itching, no nausea, no difficulty with memory loss, is functioning fairly well to the best of his ability and staying active as he can. The patient reports the pain occasionally wakes him from sleep at night, mostly in the low back, but also in the base of the neck and shoulder. The patient reports it is a 9 on a scale of 10 at its worst over the past week, 7 on average of 5 at its least and is a 5 today. The patient reports tingling, burning, cramping in the neck, shoulders and low back, aching and dull, also sometimes sharp with some radiation to the right lower extremity. There is a shooting pain, can be more constant with activity, standing, walking, but most times, he gets around fairly well without significant difficulty. The patient reports no new motor or sensory deficits, no new bowel or bladder incontinence or other complaints. PHYSICAL EXAMINATION: VITAL SIGNS: The patient's blood pressure 121/93, pulse 93, respirations 18, temperature 98.4 degrees Fahrenheit, weight is 243 pounds. GENERAL: The patient is awake, alert, oriented, appropriate, very pleasant demeanor. HEENT: Head shows normocephalic, atraumatic. Extraocular movements are intact and symmetrical. Oral cavity: Mucous membranes moist and pink. Dentition is intact. NECK: Shows anterior throat supple without palpable lymphadenopathy noted. Swallow reflex symmetrical. CHEST: Shows normal on inspection. Breath sounds are clear to auscultation bilaterally. HEART: Shows S1, S2 clear. ABDOMEN: Obese, soft, nontender, nondistended. No palpable organomegaly is noted. No rebound or guarding demonstrated. BACK: Shows spine grossly in the midline. Normal appearing thoracic kyphosis and lumbar lordotic curvature slightly flattened. With palpation, cervical paraspinous muscle shows symmetrical on inspection, with palpation shows some moderate tenderness diffusely throughout the upper, middle and lower distribution of paraspinous muscles, slightly more painful on the right than the left, but without significant atrophy, hypertrophy without trigger points. The patient has good rotational motion of cervical spine, both laterally as well as extension and flexion without difficulty. Low back shows moderate tenderness in the middle and lower distribution of paraspinous muscles, again diffusely without radiation, without trigger points and good rotation of the lumbar spine with extension, flexion as well. EXTREMITIES: The patient's upper extremities show deep tendon reflexes 1+ in the patellar and tendo calcaneus tendons. Motor exam is 5/5 with knitting machine operator strength. Lower extremities are 1+ in the patellar and tendo calcaneus tendons and 5/5 dorsiflexion and extension. Peripheral pulses are 2+ radial and 1+ posterior tibia. No peripheral edema is noted in the upper or lower extremities. Options were discussed with the patient. The patient's old chart was reviewed as his current medication regimen updated. Current review of systems updated today as well. We will refill the patient's medication for 2-month period. He has had appropriate K-TRACS reporting as well as appropriate urinalysis to date. The patient was given instruction as well as side effects to be aware of with each of the medications. We will follow up in approximately 2 months or sooner as necessary. PRAVEEN BANEGAS MD DR: CARMEN/ravi JOB#: [id number] / [id number]
== END | disposition home or self-care (01) ==
LOC: PNCL 12:41
PROVIDERS: ATTEND Anesthesiology
DX: M54.16 Radiculopathy, lumbar region (principal); M46.1 Sacroiliitis, not elsewhere classified; M96.1 Postlaminectomy syndrome, not elsewhere classified
CPT/HCPCS: G0463

== ENCOUNTER → 2019-05-29 | Outpatient (CLI) | payer MEDICARE ==
--- NOTE | 2019-05-30 01:00 | PAIN ---
DATE OF SERVICE: 05/29/2019 PROGRESS NOTE FOR PAIN CLINIC DIAGNOSES: 1. Post-lumbar laminectomy syndrome. 2. Post-cervical laminectomy syndrome. 3. Lumbar radiculopathy. 4. Right sacroiliitis. HISTORY OF PRESENT ILLNESS: The patient is a 59-year-old male who returns for followup status post medication management with oxycodone and Ambien for sleep. The patient reports he is doing very well with this, has been on very stable regimen without any side effects and reports about a 70%-80% improvement with the medications. The patient reports still some significant pain in the base of neck and upper extremities. Low back is his main complaint into the right lower extremity with some radicular pain, worse with walking, standing, changing positions, although with the medication he reports he is doing very well with increase in his distance walking, doing activities around the home and hobby activities. The patient reports his pain is a 9 on a scale of 10 at its worst in the last week, 7 on average, 6 at its least and is a 6 today. The patient reports it is aching, sharp, dull, tight, shooting, tingling, burning in the back, radiating to the arm and the leg on the right side, becomes constant with activity, but is relieved with rest. The patient reports it generally does not awaken him from sleep at night. The patient reports no new motor or sensory deficits, no new bowel or bladder incontinence. PHYSICAL EXAMINATION: VITAL SIGNS: The patient's blood pressure is 112/88, pulse 85, respirations 16, temperature 98.0 degrees Fahrenheit, weight is 245 pounds. GENERAL: The patient is awake, alert, oriented, appropriate, very pleasant demeanor. HEENT: Shows normocephalic, atraumatic. Extraocular movements are intact and symmetrical. Oral cavity: Mucous membranes moist and pink. Dentition is intact. NECK: Shows anterior throat supple without palpable lymphadenopathy noted. Swallow reflex symmetrical. CHEST: Shows normal on inspection. Breath sounds are clear bilaterally. HEART: Shows S1, S2 clear. ABDOMEN: Soft, nontender, nondistended. BACK: Shows spine grossly in the midline. Normal appearing cervical lordotic curvature, minor increase in thoracic kyphosis and some flattening of lumbar lordotic curvature with well-healed surgical scarring noted, both anterior neck and posterior lumbar spine. With palpation, there is some moderate tenderness in the cervical paraspinous musculature bilaterally, but only diffusely without significant radiation. Lumbar paraspinous muscle shows symmetrical with palpation shows some moderate tenderness as well throughout the upper, middle and lower distribution of paraspinous muscles, but without significant radiation. The patient has good rotational motion of both the cervical spine and lumbar spines without significant increase in pain with extension, flexion, right and left lateral rotation. EXTREMITIES: Upper extremities show deep tendon reflexes 2+ in the biceps and triceps tendons. Motor exam is approximately 4 on a scale of 5 with insulator helper strength, bicep and tricep flexion is symmetrical. Peripheral pulses are 2+ radial. No peripheral edema is noted. Lower extremities show 1+ patellar and tendo calcaneus tendons. Motor exam is approximately 4 on a scale of 5 as well, but symmetrical once again with dorsiflexion and extension. Peripheral pulses are 1+ posterior tibia. No peripheral edema bilaterally upper or lower extremities. Options were discussed with the patient. The patient's old chart was reviewed as his current medication regimen updated. Current review of systems updated today as well. We will refill the patient's oxycodone as well as Ambien for 2-month period. The patient had appropriate K-TRACS reporting as well as appropriate urinalysis to date. We will refill the patient's medicines for 2-month period with instructions, side effects to be aware of discussed with each of the medications. The patient will follow up in approximately 2 months as scheduled or sooner as necessary. PRAVEEN BANEGAS MD DR: CARMEN/ravi JOB#: [id number] / [id number]
== END | disposition home or self-care (01) ==
LOC: PNCL 11:58
PROVIDERS: ATTEND Anesthesiology
DX: M96.1 Postlaminectomy syndrome, not elsewhere classified (principal); M54.16 Radiculopathy, lumbar region; M46.1 Sacroiliitis, not elsewhere classified
CPT/HCPCS: G0463

== ENCOUNTER → 2019-08-01 | Outpatient (CLI) | payer MEDICARE ==
--- NOTE | 2019-08-01 15:05 | PAIN ---
DATE OF SERVICE: 08/01/2019 PROGRESS NOTE FOR PAIN CLINIC DIAGNOSES: 1. Post-lumbar laminectomy syndrome with lumbar radiculopathy. 2. Post-cervical laminectomy syndrome. 3. Right sacroiliitis. HISTORY OF PRESENT ILLNESS: The patient is a 59-year-old male who returns for followup status post medication management with oxycodone and Ambien for sleep. The patient reports doing very well, has been on a very stable regimen with medicine up to 4 times daily with oxycodone. The patient reports still significant pain in the base of the neck and shoulders, upper back as well as the mid back, low back and right lower extremity as it was previously, but very well controlled by about 70-80% with medications and without specific side effects. The patient reports it still wakes him from sleep at night, depending on how he is lying, generally more with the neck and the back, but about every 4 hours. He is away from the pain, but he usually gets back to sleep by either repositioning, applying heat or taking pain medication. The patient reports his pain is an 8 on a scale of 10 at its worst over the past week, 7 on average, 7 at its least and is a 7 today. The patient reports it is aching, sharp, dull, shooting, cramping and stabbing at times, tingling and burning in the neck and shoulders as well as the low back with some aching, becoming constant with activity, better with sitting or lying down, worse with walking, standing, changing positions. The patient reports he is getting through his normal activities during the days without significant limitation secondary to the medication and without side effects once again. PHYSICAL EXAMINATION: VITAL SIGNS: The patient's blood pressure is 115/77, pulse is 84, respirations are 18, temperature is 98.5 degrees Fahrenheit, height 6 feet and weight is 240 pounds. GENERAL: The patient is awake, alert, oriented, appropriate, very pleasant demeanor. HEENT: Head shows normocephalic, atraumatic. Extraocular movements are intact and symmetrical. Oral cavity: Mucous membranes moist and pink. Dentition is intact. NECK: Shows anterior throat supple without palpable lymphadenopathy noted. Swallow reflex symmetrical. CHEST: Shows normal on inspection. Breath sounds are clear bilaterally. HEART: Shows S1, S2 clear. No murmurs auscultated. ABDOMEN: Soft, nontender, nondistended. No palpable organomegaly is noted. No rebound or guarding demonstrated. BACK: Shows spine grossly in the midline. Normal appearing thoracic kyphosis and some minor flattening of cervical lordotic curvature as well as lumbar lordotic curvature with well-healed surgical scar noted in the lumbar distribution. Cervical paraspinous muscle shows symmetrical on inspection, on palpation shows some moderate tenderness diffusely bilaterally going diffusely without significant radiation. The patient has good rotational motion of cervical spine, slightly guarded with extension as well as right and left lateral rotation, but without specific radiation or specific spasticity or pain radiating. The patient's lower back shows some moderate tenderness with palpation throughout the upper, middle and lower distribution of paraspinous muscles, but only diffusely without radiation as well. No atrophy, hypertrophy, and no asymmetry. The patient has good rotational motion of the lumbar spine, both laterally as well as extension and flexion without significant increase in pain. There is some mild tenderness on the right posterior superior iliac spine, but not the left, but not specifically tender over the spinous processes or the sacrum itself. EXTREMITIES: The patient's upper extremities show deep tendon reflexes 2+ in the biceps, triceps tendons. Motor exam is strong with clinical research assistant strength rated at 5/5 as is bicep and tricep flexion. Lower extremities show 4/5 dorsiflexion, extension, quadriceps and hamstring flexion, but symmetrical. Right quadriceps shows a 3-4 on a scale of 5, but 5/5 on the left with flexion and extension. Peripheral pulses are 1+ in the posterior tibia. No peripheral edema is noted bilaterally. Options were discussed with the patient. The patient's old chart was reviewed as his current medication regimen updated. Current review of systems updated today as well. We will proceed with refill of the patient's oxycodone as well as Ambien. The patient was given instruction as well as side effects to be aware of each of these medications. The patient had appropriate K-TRACS reporting as well as appropriate urinalysis to date. We will make this a 2-month prescription refill with instructions, side effects to be aware of once again with each medication. The patient will follow up in approximately 2 months or sooner if necessary. PRAVEEN BANEGAS MD DR: CARMEN/ravi JOB#: [id number] / [id number]
== END | disposition home or self-care (01) ==
LOC: PNCL 12:45
PROVIDERS: ATTEND Anesthesiology
DX: M96.1 Postlaminectomy syndrome, not elsewhere classified (principal); M54.16 Radiculopathy, lumbar region; M46.1 Sacroiliitis, not elsewhere classified
CPT/HCPCS: G0463

== ENCOUNTER → 2019-09-26 | Outpatient (CLI) | payer MEDICARE ==
--- NOTE | 2019-09-26 12:38 | PAIN ---
DATE OF SERVICE: 09/26/2019 PROGRESS NOTE FOR PAIN CLINIC DIAGNOSES: 1. Post-lumbar laminectomy syndrome, lumbar; and post-laminectomy syndrome, cervical. 2. Lumbar radiculopathy. 3. Right sacroiliitis. HISTORY OF PRESENT ILLNESS: The patient is a 59-year-old male, who returns for followup status post medication management with oxycodone 20 mg. The patient reports he has been doing very well with this. Been on very stable regimen. Also, taking Ambien at night for sleep. Has been on this regimen for a prolonged period of time with good results. The patient rates about 75-80% improvement overall with the medications and without specific side effects. The patient reports occasional constipation, but remedy easily with [id number] laxatives and hydration. The patient reports otherwise he is fairly functional with the medications, still some significant pain in the low back and the right lower extremity as well as the neck and right upper extremity, but the patient reports he knows his limitations and is able to be cautious with activity when he can and is very well controlled without again significant side effects other than the constipation. The patient reports his pain is a 9 on a scale of 10 at its worse over the past week, 7 on average, 6 at its least and is a 6 today. The patient reports pain in the neck and shoulders; is dull and aching and radiating to the right arm. Low back is tingling and burning, at times stabbing, sometimes in the right leg, which can be constant with increased activity, but again the patient is being cautious with activity, but still functioning well day to day. The patient reports it awakens him from sleep, sometimes every 2-3 hours, but most nights he does sleep fairly well. The patient reports no new motor or sensory deficits, no new bowel or bladder incontinence or other complaints. PHYSICAL EXAMINATION: VITAL SIGNS: The patient's blood pressure 125/83, pulse 83, respirations 18, temperature is 98.4 degrees Fahrenheit, height is 6 feet, weight is 243 pounds. GENERAL: The patient is awake, alert, oriented, appropriate, very pleasant demeanor. HEENT: Shows normocephalic, atraumatic. Extraocular movements are intact and symmetrical. Oral cavity shows mucous membranes moist and pink. Dentition is intact. NECK: Shows anterior throat supple without palpable lymphadenopathy noted. Swallow reflex is symmetrical. CHEST: Shows normal on inspection. Breath sounds are clear bilaterally. No rales, rhonchi, or wheezes auscultated. HEART: Shows S1 and S2 clear. No murmurs auscultated. ABDOMEN: Obese, soft, nontender, nondistended. No palpable organomegaly is noted. BACK: Shows spine grossly in the midline. Normal-appearing thoracic kyphosis and some slight flattening of lumbar lordotic curvature with well-healed surgical scar noted in the lumbar distribution. Neck shows good rotational motion of cervical spine, both laterally as well as extension and flexion without significant increase in pain. Posterior cervical musculature shows symmetrical on inspection with a normal cervical lordotic curvature, with palpation shows some mild tenderness diffusely in the base of the neck; in the cervical paraspinous muscles and also into the right trapezius, but only mildly without specific trigger points or radiation of pain. The patient's lower back shows again flattening of lumbar lordotic curvature with well-healed surgical scarring. Palpation of the paraspinous musculature shows moderate tenderness throughout the upper, middle, and lower distribution of the paraspinous muscles bilaterally without radiation, without trigger points, or asymmetry and no tenderness over the sacrum or sacroiliac region on the right. Shows some mild tenderness in the posterior superior iliac spine, but only mildly with deep palpation. The left side is nontender. The patient has good rotational motion of lumbar spine, both laterally greater than 10 degrees right and left as well as extension greater than 10 degrees, forward flexion 45 degrees without significant increase in pain. EXTREMITIES: The patient's extremities show upper extremity deep tendon reflexes 2+ in the biceps and triceps tendons. Lower extremities are 1+ patellar and tendo-calcaneus tendons. Motor exam is strong with 5/5 therapeutic recreation assistant strength, bicep and tricep flexion, quadriceps and hamstring flexion is approximately 4 on a scale of 5 as is dorsiflexion and extension bilaterally, but again symmetrical with upper and lower extremities. Options were discussed with the patient. The patient's old chart was reviewed as his current medication regimen updated. Current review of systems updated today as well and we will proceed with a refill of the patient's oxycodone, also Ambien for sleep. The patient was given instruction as well as side effects where of each of the medications. The patient has been on very stable medication regimen and has had appropriate K-TRACS reporting as well as appropriate urinalysis to date. We will refill the patient's medications for a 2-month period. The patient was given instruction as well as side effects to be aware of each of the medications and will follow up in approximately 2 months or sooner if necessary. PRAVEEN BANEGAS MD DR: CARMEN/ravi JOB#: [id number] / [id number]
== END | disposition home or self-care (01) ==
LOC: PNCL 11:01
PROVIDERS: ATTEND Anesthesiology
DX: M54.16 Radiculopathy, lumbar region (principal); M46.1 Sacroiliitis, not elsewhere classified; M96.1 Postlaminectomy syndrome, not elsewhere classified; Z79.82 Long term (current) use of aspirin; Z79.899 Other long term (current) drug therapy
CPT/HCPCS: G0463

== ENCOUNTER → 2019-11-21 | Outpatient (CLI) | payer MEDICARE ==
--- NOTE | 2019-11-21 13:46 | PDOC ---
Progress Note - Pain Clinic Date of Service: DOS: DATE: 11/21/19 TIME: 13:40 Diagnosis: Dx: Post lumbar laminectomy syndrome lumbar and cervical postlaminectomy syndrome Right sacroiliitis History or Present Illness: HPI: 59-year-old male returns follow-up status post medication management with oxycodone and Ambien for sleep patient reports he been doing very well with this on a very stable regimen of the medication without significant side effects. Patient still reports pain low back right lower extremity posterior thigh and calf also pain in the base of the neck and shoulders upper extremities worse with activity standing walking changing positions better with sitting or laying down but still wakes him from sleep about 3-4 times at night. He reports no side effects with the medication and reports overall about a 75 to 80% improvement with medications. Patient reports no new motor or sensory deficits he does have some chest pain which he is under further work-up with his temporary staff accountant and have a heart cath in about 1 week. Physical Exam: VS: Blood pressure is 125/82 pulse 81 respirations 18 temperature 98.1 F height is 6 foot weight is 237 pounds PE: PHYSICAL EXAMINATION: GENERAL: The patient is awake, alert, oriented, appropriate, very pleasant demeanor HEENT: Shows normocephalic, atraumatic. Extraocular movements are intact and symmetrical. Oral cavity: Mucous membranes moist and pink. NECK: Shows anterior throat supple without palpable lymphadenopathy noted. Sw allow reflex symmetrical. CHEST: Shows normal on inspection. Breath sounds are clear bilaterally, no rales rhonchi wheezes auscultated. HEART: Shows distant, S1, S2 clear. No murmurs auscultated. ABDOMEN: Soft, nontender, nondistended, obese. No palpable organomegaly is noted. No rebound or guarding demonstrated. BACK: Shows spine grossly in the midline. Normal-appearing cervical lordotic curvature, cervical paraspinous posterior shows symmetrical with inspection with palpation some moderate tenderness diffusely in the inferior aspect of the cervical paraspinous puncture as well as the superior medial trapezius bilaterally but without radiation or trigger points.. There is slightly increased thoracic kyphosis, some minor flattening of the lumbar lordotic curvature. Lumbar paraspinous muscles show symmetrical on inspection, on palpation shows some moderate tenderness diffusely throughout the upper, middle and lower distribution of the paraspinous muscles bilaterally and also into the lower thoracic paraspinous musculature, firm and tender, but without specific trigger points, without radiation of pain. The patient has good rotational motion of the lumbar spine, both laterally as well as extension and flexion without significant difficulty. No tenderness over the spinous processes, sacrum or sacroiliac regions. EXTREMITIES: Lower extremities show deep tendon reflexes 1+ in the patellar and tendo calcaneus tendons. Motor exam is 4 on a scale of 5 with right dorsiflexion, extension, quadriceps and hamstring flexion and 4/5 on the left. Peripheral pulses are 1+ posterior tibial. No peripheral edema is noted bilaterally. Lower extremities are warm and dry to touch, equal in color and appearance. Upper extremity deep tendon reflexes are 2+ in the biceps triceps tendons bilaterally motor exam strong with distribution driver strength rated 5 out of 5 as is bicep and tricep flexion symmetrical peripheral pulses are 2+ radial no peripheral edema is noted bilaterally. SKIN: Shows warm and dry, good turgor. No edema. No sores, rashes or bruising throughout. Procedure: Procedure: None Medication Injected: Med Injected: None Condition at Discharge: Condition at Discharge: Options were discussed with the patient. Patient will chart reviewed his his current medication regimen updated current review of systems updated today as well. We will refill patient's oxycodone as well as Ambien for 2-month. Patient has had appropriate K tract report as well as appropriate urinalyses to date and will make this a 2-month refill. Patient given instructions will side effects to be aware with the medications. we will have urinalysis done today as routine screening as well. Patient return to clinic in approximate 2 months or sooner as necessary. PRAVEEN BANEGAS MD Nov 21, 2019 13:46
== END | disposition home or self-care (01) ==
LOC: PNCL 13:02
PROVIDERS: ATTEND Anesthesiology
DX: M46.1 Sacroiliitis, not elsewhere classified (principal); M96.1 Postlaminectomy syndrome, not elsewhere classified; Z79.82 Long term (current) use of aspirin; Z79.899 Other long term (current) drug therapy
CPT/HCPCS: G0463

== ENCOUNTER → 2020-01-16 | Outpatient (CLI) | payer MEDICARE ==
[~2020-01-16] MED LIST changes: -ENAL20TA PO; +ENAL20TA10 PO; -ENAL5TAB PO; +ENAL5TAB12 PO
--- NOTE | 2020-01-16 13:26 | PDOC ---
Progress Note - Pain Clinic Date of Service: DOS: DATE: 01/16/20 TIME: 13:21 Diagnosis: Dx: Lumbar radiculopathy with post lumbar laminectomy syndrome Cervical postlaminectomy syndrome Right sacroiliitis History or Present Illness: HPI: 60-year-old male returns follow-up status post medication management with oxycodone and Ambien for sleep. Patient reports he is doing very well with this with good reduction in pain by about 65 to 70% patient reports he has had some recent cardiac perfusion surgery performed about 2 weeks ago and is feeling much better with better energy and less shortness of breath. Patient reports his medication is doing well without side effects patient has been on a very stable regimen to date with still some complaints of pain in the base the neck and shoulders upper back mid back low back and bilateral lower extremities worse with activity but sleeping fairly well at night patient reports occasionally awakens him from sleep about every 3-5 hours was using heat massage techniques also soaking in hot tub helps the pain as well. Patient reports is aching sharp dull tight shooting cramping burning and tingling at times radiating can be constant with activity the patient has fairly good at avoiding the activities exacerbated the most. Reports no new motor or sensory deficits no new changes or other complaints. Physical Exam: VS: Blood pressure is 115/83 pulse 94 respiration 16 temperature 98.3 F weight 235 pounds PE: PHYSICAL EXAMINATION: GENERAL: The patient is awake, alert, oriented, appropriate, very pleasant demeanor HEENT: Shows normocephalic, atraumatic. Extraocular movements are intact and symmetrical. NECK: Shows anterior throat supple without palpable lymphadenopathy noted. Swallow reflex symmetrical. CHEST: Shows normal on inspection, with healing surgical scar at the left lateral chest and chest tube healing scar. Breath sounds are clear bilaterally distant but no rales rhonchi wheezes auscultated. HEART: Shows S1, S2 clear. No murmurs auscultated. ABDOMEN: Soft, nontender, nondistended. No palpable organomegaly is noted. No rebound or guarding demonstrated. BACK: Shows spine grossly in the midline, obese. Normal-appearing cervical lordotic curvature. There is slightly increased thoracic kyphosis, some minor flattening of the lumbar lordotic curvature. Lumbar paraspinous muscles show symmetrical on inspection, on palpation shows some moderate tenderness diffusely throughout the upper, middle and lower distribution of the paraspinous muscles bilaterally, but without specific trigger points, without radiation of pain. The patient has good rotational motion of the lumbar spine, both laterally as well as extension and flexion without significant difficulty. No tenderness over the spinous processes, sacrum or sacroiliac regions. EXTREMITIES: Lower extremities show deep tendon reflexes 1+ in the patellar and tendo calcaneus tendons. Motor exam is 4 on a scale of 5 with right dorsiflexion, extension, quadriceps and hamstring flexion and 4/5 on the left. Peripheral pulses are 1+ posterior tibial. No peripheral edema is noted bilaterally. Lower extremities are warm and dry to touch, equal in color and appearance. Upper extremities show deep tendon reflexes 2+ in the bicep and tricep tendons motor exam is strong with media services coordinator strength rated 5 out of 5 and equal as is bicep and tricep flexion. Peripheral pulses are 2+ radial bilaterally. SKIN: Shows warm and dry, good turgor. No edema. No sores, rashes or bruising throughout. Procedure: Procedure: Options were discussed with the patient. Patient's old chart was reviewed his current medication regimen updated current review of systems updated today as well. Has been on a very stable regimen with his medication management we will refill patient's oxycodone as well as Ambien for 2-month. Patient is given instructions will side effects aware of each of the medications. We will have urinalysis today as part of routine screening. He has had appropriate K[employer] reporting as well as appropriate urinalyses to date and we will refill this for 2-month period. Medication Injected: Med Injected: None Condition at Discharge: Condition at Discharge: Condition at discharge is stable. PRAVEEN BANEGAS MD Jan 16, 2020 13:26
== END ==
LOC: PNCL 12:38
PROVIDERS: ATTEND Anesthesiology
DX: M54.16 Radiculopathy, lumbar region (principal); M46.1 Sacroiliitis, not elsewhere classified; Z88.8 Allergy status to other drugs, medicaments and biological substances; Z79.82 Long term (current) use of aspirin; Z79.899 Other long term (current) drug therapy
CPT/HCPCS: G0463

== ENCOUNTER → 2020-03-12 | Outpatient (CLI) | payer MEDICARE ==
--- NOTE | 2020-03-12 13:52 | PDOC ---
Progress Note - Pain Clinic Date of Service: DOS: DATE: 03/12/20 TIME: 13:49 Diagnosis: Dx: Lumbar radiculopathy with lumbar postlaminectomy syndrome Cervical postlaminectomy syndrome Right sacroiliitis History or Present Illness: HPI: 60-year-old male returns follow-up status post medication with oxycodone and Ambien for sleep. Patient reports that he has been doing fairly well despite a very stable regimen but still some pain in the department in the low back and right lower extremity rating the posterior gluteus posterior thigh patient reports no new motor or sensory deficits but significant pain in the low back and leg with activity patient reports been fairly active lately has been taking it easy as much as he can want to decrease the pain. Patient reports still abo ut a 70 to 75% improvement with the medication alone without any side effects. Patient rates his pain as a 9 on scale 10 is worse over the past week 7 on average 7 its least is a 7 today. Patient ports aching sharp dull tight shooting cramping stabbing burning radiating can be constant with activity better with sitting or laying down does awaken her from sleep still about every 3-4 hours but is able to get back to sleep with repositioning. Patient reports no new motor or sensory deficit and again no side effects with his medications. Physical Exam: VS: Blood pressure is 123/74 pulse 83 respirations 18 temperature is 98.3 F height is 6 foot weight is 239 pounds PE: PHYSICAL EXAMINATION: GENERAL: The patient is awake, alert, oriented, appropriate, very pleasant demeanor HEENT: Shows normocephalic, atraumatic. Extraocular movements are intact and symmetrical. NECK: Shows anterior throat supple without palpable lymphadenopathy noted. Swallow reflex symmetrical. CHEST: Shows normal on inspection. Sternotomy scar noted. Breath sounds are clear bilaterally, distant but no rales rhonchi wheezes auscultated. HEART: Shows S1, S2 clear. No murmurs auscultated. ABDOMEN: Soft, nontender, nondistended, obese. No palpable organomegaly is noted. No rebound or guarding demonstrated. BACK: Shows spine grossly in the midline. Normal-appearing cervical lordotic curvature. There is slightly increased thoracic kyphosis, some minor flattening of the lumbar lordotic curvature. Lumbar paraspinous muscles show symmetrical on inspection, on palpation shows some moderate tenderness diffusely throughout the upper, middle and lower distribution of the paraspinous muscles without specific trigger points, without radiation of pain. The patient has good rotational motion of the lumbar spine, both laterally as well as extension and flexion without significant difficulty. No tenderness over the spinous processes, or sacrum with mild tenderness only over the right sacroiliac region. EXTREMITIES: Lower extremities show deep tendon reflexes 1+ in the patellar and tendo calcaneus tendons. Motor exam is 4 on a scale of 5 with right dorsiflexion, extension, quadriceps and hamstring flexion and 4/5 on the left. Peripheral pulses are 1+ posterior tibial. No peripheral edema is noted bilaterally. Lower extremities are warm and dry to touch, equal in color and appearance. SKIN: Shows warm and dry, good turgor. No edema. No sores, rashes or bruising throughout. Procedure: Procedure: Options were discussed with the patient. Patient chart was reviewed his his current medication regimen updated current review of systems updated today as well. We will refill patient's medication oxycodone as well as Ambien patient has been on very stable regimen and has had appropriate K tracts reporting as well as appropriate urinalyses to date. Patient return to clinic in approximately 2 months for follow-up, or sooner as necessary, and was counseled as to return appointment activity level and side effects beware with the medications. Medication Injected: Med Injected: None Condition at Discharge: Condition at Discharge: Condition at discharge is stable. PRAVEEN BANEGAS MD Mar 12, 2020 13:52
== END | disposition home or self-care (01) ==
LOC: PNCL 12:54
PROVIDERS: ATTEND Anesthesiology
DX: M54.16 Radiculopathy, lumbar region (principal); M96.1 Postlaminectomy syndrome, not elsewhere classified; M46.1 Sacroiliitis, not elsewhere classified; Z79.899 Other long term (current) drug therapy; Z79.82 Long term (current) use of aspirin; Z88.8 Allergy status to other drugs, medicaments and biological substances; Z98.890 Other specified postprocedural states
CPT/HCPCS: G0463

== ENCOUNTER → 2020-05-07 | Outpatient (CLI) | payer MEDICARE ==
--- NOTE | 2020-05-07 13:46 | PDOC ---
Progress Note - Pain Clinic Date of Service: DOS: DATE: 05/07/20 TIME: 13:40 Diagnosis: Dx: Post lumbar radicular syndrome Post cervical laminectomy syndrome Left sacroiliitis History or Present Illness: HPI: 60-year-old male returns follow-up status post medication management with oxycodone. Patient reports to be doing very well been a very stable regimen with the medication reports that unless he is increase his activity to a fairly significant extent is fairly well controlled reports about a 60 to 70% improvement with the medications overall. Patient reports his pain is a 9 on scale 10 is worse with the past week 8 on average 7 its least is a 7 today. Patient scribes pain in the base the neck and shoulder more on the right than the left as well as in the low back and the right lower extremity describes aching sharp dull tight shooting at times tingling burning cramping pains in the neck and shoulders as well as the low back can be radiating in the lower extremity on the right but only infrequently unless he is" overdoing it." Patient reports some increased activity over the past week or so increasing the pain but again once he is resting and is back to baseline and generally well controlled. Again patient has no side effects with his medications at this time. Patient ports he is sleeping fairly well patient wakes him from sleep at night every night if it does only once every 4 hours or so the pain mainly in the low back. Patient reports no new motor or sensory deficits no new bowel or bladder incontinence or other complaints. Physical Exam: VS: Blood pressure is 148/64 pulse 83 respirations 18 temperature 98.1 F height is 6 foot weight is 236 pounds PE: PHYSICAL EXAMINATION: GENERAL: The patient is awake, alert, oriented, appropriate, very pleasant demeanor HEENT: Shows normocephalic, atraumatic. Extraocular movements are intact and sy mmetrical. NECK: Shows anterior throat supple without palpable lymphadenopathy noted. Swallow reflex symmetrical. CHEST: Shows normal on inspection. Breath sounds are clear bilaterally, no rales or rhonchi. HEART: Shows S1, S2 clear. No murmurs auscultated. ABDOMEN: Soft, nontender, nondistended, obese. No palpable organomegaly is noted. BACK: Shows spine grossly in the midline. Normal-appearing cervical lordotic curvature. Cervical paraspinous muscles show symmetrical inspection, on palpation shows some moderate tenderness diffusely throughout the upper middle lower distribution the paraspinous muscle belly diffusely without significant radiation. Patient has good rotational motion of the cervical spine both laterally as well as extension flexion without significant pain as well. There is some increased thoracic kyphosis, and flattening of the lumbar lordotic curvature. Lumbar paraspinous muscles show symmetrical on inspection, on palpation shows some moderate tenderness diffusely throughout the upper, middle and lower distribution of the paraspinous muscles without specific trigger points, without radiation of pain. The patient has good rotational motion of the lumbar spine, both laterally as well as extension and flexion without significant difficulty. Patient has mild tenderness over the right sacroiliac region and posterior superior iliac spine but without radiation. Left side is nontender. EXTREMITIES: Lower extremities show deep tendon reflexes 1+ in the patellar and tendo calcaneus tendons. Motor exam is 4 on a scale of 5 with right dorsiflexion, extension, quadriceps and hamstring flexion and 4/5 on the left. Peripheral pulses are 1+ posterior tibial. No peripheral edema is noted bilaterally. Lower extremities are warm and dry to touch, equal in color and appearance. Upper extremities show deep tendon reflexes 2+ in the bicep and tricep tendons motor exam is strong with legislators strength rated 5 out of 5 as is bicep and tricep flexion bilaterally. Peripheral pulses are 2+ radial bilatera lly. SKIN: Shows warm and dry, good turgor. No edema. No sores, rashes or bruising throughout. Procedure: Procedure: Options were discussed with the patient. Patient will chart reviews his current medication regimen updated current review of systems updated today as well. We will refill patient's oxycodone 20 mg and Ambien 10 mg for sleep as he has had a very stable control of pain with the medications and ability to sleep. Patient has had appropriate K tracts reporting as well as appropriate urinalyses to date and we will make the prescription for 2 months. Patient was given instructions well side effects beware of each of the medications and will follow-up in approximate 2 months or sooner if necessary. Medication Injected: Med Injected: None Condition at Discharge: Condition at Discharge: Condition at discharge is stable. PRAVEEN BANEGAS MD May 07, 2020 13:46
== END | disposition home or self-care (01) ==
LOC: PNCL 13:04
PROVIDERS: ATTEND Anesthesiology
DX: M54.16 Radiculopathy, lumbar region (principal); M96.1 Postlaminectomy syndrome, not elsewhere classified; M46.1 Sacroiliitis, not elsewhere classified; Z79.82 Long term (current) use of aspirin; Z79.899 Other long term (current) drug therapy; Z88.8 Allergy status to other drugs, medicaments and biological substances
CPT/HCPCS: G0463

== ENCOUNTER → 2020-07-02 | Outpatient (CLI) | payer MEDICARE ==
--- NOTE | 2020-07-02 14:09 | PDOC ---
Progress Note - Pain Clinic Date of Service: DOS: DATE: 07/02/20 TIME: 14:06 Diagnosis: Dx: Lumbar radiculopathy with lumbar postlaminectomy syndrome Cervical postlaminectomy syndrome Left sacroiliitis History or Present Illness: HPI: 60-year-old male returns for follow-up status post medication management with both oxycodone and Ambien for sleep. Patient reports doing very well with the oxycodone control with the pain in the low back bilateral lower extremities worse on the right than the left also pain the base the neck and shoulders again worse on the right than the left in the upper extremities patient reports no new motor or sensory deficits but still significant pain again about 60 to 70% improved with the medications. Patient reports no side effects with medications is able to perform most of his activities of daily living with the medications without impairment and with fairly good control patient reports pain the base of neck and shoulders aching and burning as well as cramping and stabbing also in the low back tightness shooting is dull and tight alternating in the low back radiating the legs again worse on the right side both upper and lower extremities. Patient reports no new motor or sensory deficits no new bowel or bladder incontinence or other complaints. Physical Exam: VS: Blood pressure is 134/95 pulse 84 respirations 18 temperature 98.6 3 Fahrenheit weight is 244 pounds PE: PHYSICAL EXAMINATION: GENERAL: The patient is awake, alert, oriented, appropriate, very pleasant demeanor HEENT: Shows normocephalic, atraumatic. Extraocular movements are intact and symmetrical. Oral cavity: Mucous membranes moist and pink. Dentition is intact. NECK: Shows anterior throat supple without palpable lymphadenopathy noted. Swallow reflex symmetrical. CHEST: Shows normal on inspection. Breath sounds are clear bilaterally, no rales or rhonchi. HEART: Shows S1, S2 clear. No murmurs auscultated. ABDOMEN: Soft, nontender, nondistended, obese. No palpable organomegaly is noted. No rebound or guarding demonstrated. BACK: Shows spine grossly in the midline. Normal-appearing cervical lordotic curvature. There is slightly increased thoracic kyphosis, some minor flattening of the lumbar lordotic curvature. Lumbar paraspinous muscles show symmetrical on inspection, on palpation shows some moderate tenderness diffusely throughout the upper, middle and lower distribution of the paraspinous muscles without specific trigger points, without radiation of pain. The patient has good rotational motion of the lumbar spine, both laterally as well as extension and flexion without significant difficulty. EXTREMITIES: Lower extremities show deep tendon reflexes 1+ in the patellar and tendo calcaneus tendons. Motor exam is 5 on a scale of 5 with right dorsiflexion, extension, quadriceps and hamstring flexion and 5/5 on the left. Peripheral pulses are 1 posterior tibial. No peripheral edema is noted bilaterally. Lower extremities are warm and dry to touch, equal in color and appearance. Upper extremities show deep tendon reflexes 2+ in the bicep tricep tendons motor exam is strong with approximate 4 to scale 5 with right processing assistant and 5 x 5 on the left bicep tricep flexion is likewise 4-5 on the right and 5 out of 5 on the left peripheral pulses are 2+ radial no peripheral edema in the upper extremities as well. SKIN: Shows warm and dry, good turgor. No edema. No sores, rashes or bruising throughout. Procedure: Procedure: Options discussed with the patient. Patient chart reviews his current medication regimen updated current review of systems updated today as well. We will refill patient's medication has been on very stable regimen has had appropriate K tracks report as well as appropriate urinalyses to date. Patient was given a 2-month prescription with instructions side effects aware of each of the medications and will follow up in approximately 2 months or sooner as necessary. Medication Injected: Med Injected: None Condition at Discharge: Condition at Discharge: Condition at discharge is stable. PRAVEEN BANEGAS MD Jul 02, 2020 14:09
== END | disposition home or self-care (01) ==
LOC: PNCL 13:24
PROVIDERS: ATTEND Anesthesiology
DX: M54.16 Radiculopathy, lumbar region (principal); M96.1 Postlaminectomy syndrome, not elsewhere classified; M46.1 Sacroiliitis, not elsewhere classified; Z79.82 Long term (current) use of aspirin; Z79.899 Other long term (current) drug therapy; Z88.8 Allergy status to other drugs, medicaments and biological substances
CPT/HCPCS: G0463

== ENCOUNTER → 2020-09-03 | Outpatient (CLI) | payer MEDICARE ==
--- NOTE | 2020-09-03 14:43 | PDOC ---
Progress Note - Pain Clinic Date of Service: DOS: DATE: 09/03/20 TIME: 14:38 Diagnosis: Dx: Lumbar postlaminectomy syndrome with lumbar radiculopathy Cervical postlaminectomy syndrome Left sacroiliitis History or Present Illness: HPI: 60-year-old male returns for follow-up status post medication management with oxycodone. Patient reports has been doing very well with this and has been on a stable regimen of the medication for extended period of time without significant side effects and with good control of pain. Patient reports about a 70% improvement overall in his neck shoulders upper back mid back low back and right lower extremity still some radicular pain in the neck and shoulders as well as the upper extremities and the low back and right lower extremity but fairly well controlled and he is able to gauge his level of activity to coincide with the pain level and level of control that he has. Patient reports no difficulty with sleep he is taking Ambien once at bedtime also using heat and has a hot tub to help relax the muscles in the back and the neck. Patient reports no new motor or sensory deficits reports his pain is 8 on scale 10 is worse over the past week 7 on average 7 its least is a 7 today patient describes aching sharp dull tight shooting cramping and stabbing in the neck and shoulder as well as low back with radiating pain in the upper extremities and the right lower extremity with extended activity. Patient recently returned from a trip to [place] to see his brother and reports that it has not increased activity while he was there but the pain is fairly well controlled with the medications. Physical Exam: VS: Blood pressure is 147/101 pulse 84 respirations 18 temperature 98.1 F weight is 257 pounds PE: PHYSICAL EXAMINATION: GENERAL: The patient is awake, alert, oriented, appropriate, very pleasant in demeanor HEENT: Shows normocephalic, atraumatic. Extraocular movements are intact and symmetrical. Oral cavity: Mucous membranes moist and pink. Dentition is intact. NECK: Shows anterior throat supple without palpable lymphadenopathy noted. Swallow reflex symmetrical. CHEST: Shows normal on inspection. Breath sounds are clear bilaterally, distant but no rales rhonchi wheezes auscultated bilaterally.. HEART: Shows S1, S2 clear, distant but no murmurs auscultated. ABDOMEN: Soft, nontender, nondistended, obese. No palpable organomegaly is noted. No rebound or guarding demonstrated. BACK: Shows spine grossly in the midline. Normal-appearing cervical lordotic curvature. There is increased thoracic kyphosis, some flattening of the lumbar lordotic curvature, with well-healed surgical scarring. Lumbar paraspinous muscles show symmetrical on inspection, on palpation shows some moderate tenderness diffusely throughout the upper, middle and lower distribution of the paraspinous muscles, but without specific trigger points, without radiation of pain. The patient has good rotational motion of the lumbar spine, both laterally as well as extension and flexion without significant difficulty. EXTREMITIES: Lower extremities show deep tendon reflexes 1+ in the patellar and tendo calcaneus tendons. Motor exam is 5 on a scale of 5 with right dorsiflexion, extension, quadriceps and hamstring flexion and 5/5 on the left. Peripheral pulses are 1+ posterior tibial. 1+ peripheral edema is noted in the anterior tibia and the ankles bilaterally. Lower extremities are warm and dry. Upper extremity show deep tendon reflexes 2+ in the bicep tricep tendons, motor exam strong with finance professor strength rated 4 to scale 5 with right finance professor 5 out of 5 on the left bicep tricep flexion are 5 out of 5 and symmetrical. Peripheral pulses are 2+ radial bilaterally. SKIN: Shows warm and dry, good turgor. No edema. No sores, rashes or bruising throughout. Procedure: Procedure: Options were discussed with the patient. Patient chart reviews his current medication regimen updated current view of systems updated today as well. We will refill patient's oxycodone as well as Ambien patient has been on a very stable regimen has had appropriate K tracks reporting as well as appropriate urinalyses to date. We will fill this for 2-month. Patient was given instructions well side effects aware of each of the medications and will follow up in approximate 2 months or sooner if necessary. Medication Injected: Med Injected: None Condition at Discharge: Condition at Discharge: Condition at discharge is stable. PRAVEEN BANEGAS MD Sep 03, 2020 14:43
== END | disposition home or self-care (01) ==
LOC: PNCL 13:41
PROVIDERS: ATTEND Anesthesiology
DX: M96.1 Postlaminectomy syndrome, not elsewhere classified (principal); M54.16 Radiculopathy, lumbar region; M46.1 Sacroiliitis, not elsewhere classified; Z79.82 Long term (current) use of aspirin; Z79.84 Long term (current) use of oral hypoglycemic drugs; Z79.899 Other long term (current) drug therapy; Z88.8 Allergy status to other drugs, medicaments and biological substances
CPT/HCPCS: 99212; G0463

== ENCOUNTER → 2020-11-12 | Outpatient (CLI) | payer MEDICARE ==
[~2020-11-12] MED LIST changes: +OXYC20TA PO; +ZOLP10TA PO
--- NOTE | 2020-11-12 12:46 | PDOC ---
Progress Note - Pain Clinic Date of Service: DOS: DATE: 11/12/20 TIME: 12:41 Diagnosis: Dx: Post lumbar laminectomy syndrome lumbar and cervical postlaminectomy syndrome Lumbar radiculopathy Left sacroiliitis History or Present Illness: HPI: 60-year-old male returns for follow-up status post medication management with oxycodone and taking Ambien for sleep as well patient reports very stable on thi s regimen and has a very good reduction in pain approximately 75% overall without any significant side effects. Patient reports still pain in the base the neck and shoulders upper back mid back also low back and right lower extremity but is able to control his activity to a moderate extent without exacerbating the pain is performing most of his daily activities without significant limitation and again without significant side effects from the medication itself. Patient reports the pain is tingling burning cramping stabbing aching sharp dull at times tight can be radiating constant with activity but again patient controls this fairly well. Patient reports better at night still wakes him from sleep about once every 4-5 hours mainly with a low back and right leg pain. Patient reports no new motor or sensory deficits no bowel or bladder incontinence. Physical Exam: VS: Blood pressure is 120/84 pulse 84 respirations 18 temperature is 98.3 F weight is 258 pounds PE: PHYSICAL EXAMINATION: GENERAL: The patient is awake, alert, oriented, appropriate, very pleasant in demeanor. HEENT: Shows normocephalic, atraumatic. Extraocular movements are intact and symmetrical. Oral cavity: Mucous membranes moist and pink. Dentition is intact. NECK: Shows anterior throat supple without palpable lymphadenopathy noted. Swallow reflex symmetrical. CHEST: Shows normal on inspection. Breath sounds are clear bilaterally, distant but no rales or rhonchi. HEART: Shows S1, S2 clear. No murmurs auscultated. ABDOMEN: Soft, nontender, nondistended, obese. No palpable organomegaly is noted. BACK: Shows spine grossly in the midline. Normal-appearing cervical lordotic curvature. There is slightly increased thoracic kyphosis, some minor flattening of the lumbar lordotic curvature. Lumbar paraspinous muscles show symmetrical on inspection, on palpation shows some moderate tenderness diffusely throughout the upper, middle and lower distribution of the paraspinous muscles, but without specific trigger points, without radiation of pain. The patient has good rotational motion of the lumbar spine, both laterally as well as extension and flexion with some mild tenderness with extension but not with forward flexion. EXTREMITIES: Lower extremities show deep tendon reflexes 1+ in the patellar and tendo calcaneus tendons. Motor exam is 5 on a scale of 5 with right dorsiflexion, extension, quadriceps and hamstring flexion and 5/5 on the left. Peripheral pulses are 1 posterior tibial. No peripheral edema is noted bilaterally. Lower extremities are warm and dry. Upper extremity show deep tendon reflexes at 2+ in the bicep tricep tendons, motor exam is strong with screw machine set up operator tool strength rated at 4-5 on the right and 5 out of 5 on the left. Peripheral pulses are 2+ radial SKIN: Shows warm and dry, good turgor. No edema. No sores, rashes or bruising throughout. Procedure: Procedure: Options discussed with the patient. Patient chart was used his current medication regimen updated current review of systems updated today as well. We will refill patient's medication as he has been on a very stable regimen without side effects. Patient has had appropriate K tracks reporting as well as appropriate urinalyses to date as well. We will electronically prescribed a medication for 1 month refill. Oxycodone and Ambien. Patient will follow up in approximate 1 month as scheduled. Patient was given instructions well side effects beware with the medications. Medication Injected: Med Injected: None Condition at Discharge: Condition at Discharge: Condition at discharge is stable. PRAVEEN BANEGAS MD Nov 12, 2020 12:46
== END | disposition home or self-care (01) ==
LOC: PNCL 11:36
PROVIDERS: ATTEND Anesthesiology
DX: M96.1 Postlaminectomy syndrome, not elsewhere classified (principal); M54.16 Radiculopathy, lumbar region; M46.1 Sacroiliitis, not elsewhere classified
CPT/HCPCS: 99212; G0463

== ENCOUNTER → 2020-12-11 | Outpatient (CLI) | payer MEDICARE ==
--- NOTE | 2020-12-11 12:15 | NUR ---
Patient called states he needs a refill on Ambien and oxycontin . States his pain level is a 7-8 constant. Denies any new meds or medical problems. Pharmacy verified. Patient transfered to Dr Nieves .
--- NOTE | 2020-12-11 13:06 | PDOC ---
Progress Note - Pain Clinic Date of Service: DOS: DATE: 12/11/20 TIME: 13:03 Diagnosis: Dx: Lumbar radiculopathy with lumbar postlaminectomy syndrome Left sacroiliitis History or Present Illness: HPI: Telemedicine visits today with patient identity verified using date of as well as full name, total time spent: 14 minutes 60-year-old male via telemedicine visit today status post medication management with oxycodone 20 mg and also Ambien for sleep. Patient reports has been doing very well with his very stable regimen without any significant side effects still some significant pain in the low back and right lower extremity as well as the upper back mid back some in the base of the neck and shoulders as well. Patient reports overall he is careful with his activity he is doing fairly well with about a 75% improvement with the medication and again without side effects. Patient has had appropriate K tracks report as well as appropriate urinalyses to date. We will refill patient's medication via electronic prescription to his pharmacy patient was given instructions as well as side effects aware of each of the medications. Patient follow-up in approximate 4 weeks as scheduled. Physical Exam: PE: PRAVEEN BANEGAS MD Dec 11, 2020 13:06
== END | disposition home or self-care (01) ==
LOC: PNCL 10:56
PROVIDERS: ATTEND Anesthesiology
DX: M54.16 Radiculopathy, lumbar region (principal); M96.1 Postlaminectomy syndrome, not elsewhere classified; M46.1 Sacroiliitis, not elsewhere classified; Z79.82 Long term (current) use of aspirin; Z79.899 Other long term (current) drug therapy; Z88.8 Allergy status to other drugs, medicaments and biological substances
CPT/HCPCS: G0463

== ENCOUNTER → 2021-02-05 | Outpatient (CLI) | payer MEDICARE ==
--- NOTE | 2021-02-05 08:03 | PDOC ---
Progress Note - Pain Clinic Date of Service: DOS: DATE: 02/05/21 TIME: 07:59 Diagnosis: Dx: Post laminectomy syndrome lumbar Postlaminectomy syndrome cervical Lumbar radiculopathy Left sacroiliitis Chronic pain syndrome History or Present Illness: HPI: 61-year-old male returns for follow-up status post medication management with oxycodone and Ambien for sleep patient reports been doing very well with both medications no significant side effects has had no change in his medications recently and has been doing quite well. Patient has had appropriate K tracks report as well as appropriate urinalyses to date. Patient reports significant pain base the neck and left shoulder with increased activity also in the low back and left hip and leg patient reports he is able to maintain his activity to it level where he is happy with it but also not exacerbated the pain significantly. Patient reports no bowel or bladder incontinence again no other side effects with the medications. Patient rates his pain as a 9 on scale 10 is worse with past week 7 on average 7 its least is a 7 today patient reports aching sharp dull tight shooting tingling burning in the neck and shoulders also in the back its can be radiating constant in the left hip which lower extremity. Patient reports no motor loss no bowel or bladder incontinence. Physical Exam: VS: Blood pressure 125/88 pulse 73 respirations 18 temperature 90.5 F height 6 foot weight is 255 PE: PHYSICAL EXAMINATION: GENERAL: The patient is awake, alert, oriented, appropriate, very pleasant in demeanor HEENT: Shows normocephalic, atraumatic. Extraocular movements are intact and symmetrical. Oral cavity: Mucous membranes moist and pink. Dentition is intact. NECK: Shows anterior throat supple without palpable lymphadenopathy noted. Swallow reflex symmetrical. CHEST: Shows normal on inspection. Breath sounds are clear bilaterally, no rales or rhonchi. HEART: Shows S1, S2 clear. No murmurs auscultated. ABDOMEN: Soft, nontender, nondistended, obese. No palpable organomegaly is noted. BACK: Shows spine grossly in the midline. Normal-appearing cervical lordotic curvature. There is increased thoracic kyphosis, some flattening of the lumbar lordotic curvature, with well-healed surgical scar. Lumbar paraspinous muscles show symmetrical on inspection, on palpation shows some moderate tenderness diffusely throughout the upper, middle and lower distribution of the paraspinous muscles, but without specific trigger points, without radiation of pain. The patient has good rotational motion of the lumbar spine, both laterally as well as extension and flexion without significant difficulty. EXTREMITIES: Lower extremities show deep tendon reflexes 1+ in the patellar and tendo calcaneus tendons. Motor exam is 4 on a scale of 5 with right dorsiflexion, extension, quadriceps and hamstring flexion and 4/5 on the left. Peripheral pulses are 1+ posterior tibial. No peripheral edema is noted bilaterally. Lower extremities are warm and dry. Upper extremities show deep tendon reflexes 2+ in the bicep triceps tendons, motor exam is positive for scale 5 and equal casing sewer strength bicep and tricep flexion. SKIN: Shows warm and dry, good turgor. No edema. No sores, rashes or bruising throughout. Procedure: Procedure: Options were discussed with the patient. Patient's old chart was reviewed his current medication regimen updated current review of systems updated today as well. Patient is had appropriate K tracks report as well as appropriate urinalyses to date, will have urinalysis drawn today as part of routine screening, will refill patient's medication oxycodone and Ambien with instructions side effects beware discussed with each. Patient return to clinic in approximate 4 weeks as scheduled. Medication Injected: Med Injected: None Condition at Discharge: Condition at Discharge: Condition at discharge is stable. PRAVEEN BANEGAS MD Feb 05, 2021 08:03
== END | disposition home or self-care (01) ==
LOC: PNCL 07:29
PROVIDERS: ATTEND Anesthesiology
DX: M96.1 Postlaminectomy syndrome, not elsewhere classified (principal); M54.16 Radiculopathy, lumbar region; G89.4 Chronic pain syndrome; M46.1 Sacroiliitis, not elsewhere classified; Z79.82 Long term (current) use of aspirin; Z79.899 Other long term (current) drug therapy; Z88.8 Allergy status to other drugs, medicaments and biological substances
CPT/HCPCS: 99212; G0463

== ENCOUNTER → 2021-03-05 | Outpatient (CLI) | payer MEDICARE ==
--- NOTE | 2021-03-05 13:47 | NUR ---
Patient called requesting medication refill, verified name,, pharmacy,next appointment. Patient denied any constipation, changes in medications, any new medical problems. Patient states his level of pain is between a 5-8. Ktract checked. Call transferred to Dr Nieves.
--- NOTE | 2021-03-05 14:08 | PDOC ---
Progress Note - Pain Clinic Date of Service: DOS: DATE: 03/05/21 TIME: 14:07 Diagnosis: Dx: Post lumbar laminectomy syndrome, lumbar radiculopathy Post cervical laminectomy syndrome Left sacroiliitis History or Present Illness: HPI: Telemedicine visit today with patient with identity verified with date of as well as full name, total time spent 14 minutes 61-year-old male via telemedicine visit today requesting a refill for oxycodone as well as Ambien patient doing very well with both of the medications been on a very stable regimen with a good reduction in pain approximately 70+75% improvement without significant side effects patient reports he is continues to do well still some pain in the low back and bilateral lower extremities has had before as well as some pain in the neck and shoulders as well more on the left side than the right with increased activity he has been involved in recently patient reports again no side effects has had appropriate K tracks report as well as appropriate urinalyses to date. We will refill patient's medication patient was given instructions well side effects be aware of and will follow up in approximately 30 days as scheduled. Physical Exam: PE: PRAVEEN BANEGAS MD Mar 05, 2021 14:08
== END | disposition home or self-care (01) ==
LOC: PNCL 10:43
PROVIDERS: ATTEND Anesthesiology
DX: M96.1 Postlaminectomy syndrome, not elsewhere classified (principal); M46.1 Sacroiliitis, not elsewhere classified; Z79.82 Long term (current) use of aspirin; Z79.899 Other long term (current) drug therapy; Z88.8 Allergy status to other drugs, medicaments and biological substances
CPT/HCPCS: 99212; G0463

== ENCOUNTER → 2021-04-02 | Outpatient (CLI) | payer MEDICARE ==
--- NOTE | 2021-04-02 08:54 | PDOC ---
Progress Note - Pain Clinic Date of Service: DOS: DATE: 04/02/21 TIME: 08:50 Diagnosis: Dx: Lumbar radiculopathy lumbar postlaminectomy syndrome Post cervical laminectomy syndrome Left sacroiliitis History or Present Illness: HPI: 61-year-old male returns for follow-up status post medication management with oxycodone. Patient reports he is doing very well with this and has been on very stable regimen reports no new side effects with medication and about a 75% plus improvement in pain with medication. Patient reports he has no dysphoria itching nausea constipation or other side effects with medication and is able to function his daily activities very effectively with medications patient knows his limitations with activity and is able to watch those fairly closely to not exacerbate the pain patient reports pain still in the base of neck and left upper extremity rating to the left arm and hand also low back and bilateral lower extremities as previously patient reports no new bowel or bladder incontinence deficits. Patient has had appropriate K tracks reporting as well as appropriate urinalyses to date as well. Physical Exam: VS: Blood pressure is 124/86 pulse 80 respirations 18 temperature is 98.0 F weight is 254 pounds PE: PHYSICAL EXAMINATION: GENERAL: The patient is awake, alert, oriented, appropriate, very pleasant in demeanor HEENT: Shows normocephalic, atraumatic. Extraocular movements are intact and symmetrical. Oral cavity: Mucous membranes moist and pink. Dentition is intact. NECK: Shows anterior throat supple without palpable lymphadenopathy noted. Swallow reflex symmetrical. CHEST: Shows normal on inspection. Breath sounds are clear bilaterally, distant but no rales or rhonchi. HEART: Shows S1, S2 clear. No murmurs auscultated. ABDOMEN: Soft, nontender, nondistended. No palpable organomegaly is noted. BACK: Shows spine grossly in the midline. Normal-appearing cervical lordotic curvature. There is slightly increased thoracic kyphosis, some minor flattening of the lumbar lordotic curvature. Lumbar paraspinous muscles show symmetrical on inspection, on palpation shows some moderate tenderness diffusely throughout the upper, middle and lower distribution of the paraspinous muscles, but without specific trigger points, without radiation of pain. The patient has good rotational motion of the lumbar spine, both laterally as well as extension and flexion without significant difficulty. Mild tenderness over the left posterior superior iliac spine but without radiation. EXTREMITIES: Lower extremities show deep tendon reflexes 1+ in the patellar and tendo calcaneus tendons. Motor exam is 4 on a scale of 5 with right dorsiflexion, extension, quadriceps and hamstring flexion and 4/5 on the left. Peripheral pulses are 1+ posterior tibial. No peripheral edema is noted bilaterally. Lower extremities are warm and dry. Upper extremities show deep tendon reflexes 2+ in the bicep and tricep tendons motor exam is proxy form scale 5 with director money strength bicep and tricep flexion equal. SKIN: Shows warm and dry, good turgor. No edema. No sores, rashes or bruising throughout. Procedure: Procedure: Options were discussed with the patient. Patient's old chart was reviewed his current medication regimen updated current review of systems updated today as well. We will proceed with refill of patient's oxycodone 20 mg with instructions and side effects beware. Also patient requesting refill of Ambien he is taking for sleep which does very well without side effects. Patient was counseled as to each medication as well as side effects to be aware of and directions for use. Again, patient has had appropriate K tracks report as well as appropriate urinalyses to date and we will make this a 30-day refill. Patient will follow-up in approximate 30 days as scheduled. Medication Injected: Med Injected: None Condition at Discharge: Condition at Discharge: Condition at discharge is stable. PRAVEEN BANEGAS MD Apr 02, 2021 08:54
== END | disposition home or self-care (01) ==
LOC: PNCL 08:02
PROVIDERS: ATTEND Anesthesiology
DX: M54.16 Radiculopathy, lumbar region (principal); M96.1 Postlaminectomy syndrome, not elsewhere classified; M46.1 Sacroiliitis, not elsewhere classified; Z79.82 Long term (current) use of aspirin; Z79.84 Long term (current) use of oral hypoglycemic drugs; Z79.899 Other long term (current) drug therapy; Z88.8 Allergy status to other drugs, medicaments and biological substances
CPT/HCPCS: G0463

== ENCOUNTER → 2021-05-03 | Outpatient (CLI) | payer MEDICARE ==
--- NOTE | 2021-05-03 15:06 | NUR ---
Phone Visit: Pt identity verified by name and . Medications confirmed for refill are oxycodone 20mg PO Q6H PRN, and Ambien; e-scribed by Dr. Nieves to [facility] in [place], [place]. Denies any new health issues, constipation, medications changes, new allergies, or concerns pertaining to medications or pain. Follow up is scheduled for May 28, 2021. Transferred call to Dr. Nieves for focused assessment by phone. Addendum: 05/03/21 at 1522 by ARABELLA FUENTES RN Current pain rated at 6/10, described as average by pt.
--- NOTE | 2021-05-03 15:45 | PDOC ---
Progress Note - Pain Clinic Date of Service: DOS: DATE: 05/03/21 TIME: 15:42 Diagnosis: Dx: Lumbar radiculopathy with lumbar postlaminectomy syndrome Cervical postlaminectomy syndrome Left sacroiliitis History or Present Illness: HPI: Telemedicine visit today with patient identity verified with full name as well as full date of , total time spent 12 minutes 61-year-old male via telemedicine visit today requesting refill of oxycodone and Ambien. Patient reports he is doing very well and has been on a very stable regimen with medication with reduction in pain by about 75+ percent most days. Patient reports has been increases in activity doing some chores at home which is increase the pain in the low back but only transiently and the medication does do an effective job of reducing the pain significantly without significant side effects patient reports worse in the right lower extremity with posterior gluteus posterior thigh some in the lateral thigh and calf with pain also in the base the neck and the right upper extremity into the hand on the right side with some numbness and tingling but fairly well controlled with the medications at this time and again no side effects with the medication. Patient had appropriate K tracks report as well as appropriate urinalyses to date as well. We discussed options with the patient and we will electronically prescribe a refill of oxycodone as well as Ambien patient given instructions well side effects aware of each of the medications. Patient will be given a 30-day supply and will follow up in approximate 30 days as scheduled. Physical Exam: PE: PRAVEEN BANEGAS MD May 03, 2021 15:45
== END | disposition home or self-care (01) ==
LOC: PNCL 13:30
PROVIDERS: ATTEND Anesthesiology
DX: M54.16 Radiculopathy, lumbar region (principal); M96.1 Postlaminectomy syndrome, not elsewhere classified; M46.1 Sacroiliitis, not elsewhere classified; Z79.82 Long term (current) use of aspirin; Z79.899 Other long term (current) drug therapy
CPT/HCPCS: 99212; G0463

== ENCOUNTER → 2021-05-28 | Outpatient (CLI) | payer MEDICARE ==
--- NOTE | 2021-05-28 08:41 | PDOC ---
Progress Note - Pain Clinic Date of Service: DOS: DATE: 05/28/21 TIME: 08:37 Diagnosis: Dx: Lumbar radiculopathy with lumbar postlaminectomy syndrome Cervical postlaminectomy syndrome Left sacroiliitis History or Present Illness: HPI: 61-year-old male returns for follow-up status post medication management with oxycodone and Ambien for sleep. Patient reports he been doing very well with both the medications without side effects patient reports has had some increased activity at home doing some rearrangement of furniture and items and is working in his garage quite a bit because of increasing pain in his low back especially on the left side patient reports otherwise doing very well very stable has had appropriate K tracks reporting as well as appropriate urinalyses to date reports his pain is a 9 on scale 10 is worse over the past week 7 on average 7 its least and is a 7 today patient describes the pain in the back is aching and sharp alternating with dull and tight shooting pain in the lower extremities mostly in the left side the posterior gluteus and thighs can be radiating constant also the base the neck and shoulders but only moderately so. Patient reports no bowel or bladder incontinence reports has been awakening from sleep for the past week or 2 with increased activity about twice a night but is generally able reposition and get back to sleep or take pain medication to get back to sleep. Patient reports no bowel or bladder incontinence. Physical Exam: VS: Blood pressure is 125.3 pulse 94 respirations 16 temperature 98.0 F weight is 267 pounds. PE: PHYSICAL EXAMINATION: GENERAL: The patient is awake, alert, oriented, appropriate, very pleasant in demeanor HEENT: Shows normocephalic, atraumatic. Extraocular movements are intact and symmetrical. Oral cavity: Mucous membranes moist and pink. NECK: Shows anterior throat supple without palpable lymphadenopathy noted. Swallow reflex symmetrical. CHEST: Shows normal on inspection. Breath sounds are clear bilaterally. HEART: Shows S1, S2 clear. No murmurs auscultated. ABDOMEN: Soft, nontender, nondistended. No palpable organomegaly is noted. BACK: Shows spine grossly in the midline. Normal-appearing cervical lordotic curvature. There is moderately increased thoracic kyphosis, some flattening of the lumbar lordotic curvature with well-healed surgical scarring noted. Lumbar paraspinous muscles show symmetrical on inspection, on palpation shows some moderate tenderness diffusely throughout the upper, middle and lower distribution of the paraspinous muscles, but without specific trigger points, without radiation of pain. The patient has good rotational motion of the lumbar spine, both laterally as well as extension and flexion without significant difficulty. No tenderness over the spinous processes, sacrum or sacroiliac regions. EXTREMITIES: Lower extremities show deep tendon reflexes 1+ in the patellar and tendo calcaneus tendons. Motor exam is 4 on a scale of 5 with right dorsiflexion, extension, quadriceps and hamstring flexion and 4/5 on the left. Peripheral pulses are 1+ posterior tibial. No peripheral edema is noted bilaterally. Lower extremities are warm and dry. Upper extremity show deep tendon reflexes 2+ in the bicep tricep tendons, motor exam is 4 to scale 5 canvas marker strength bicep tricep flexion and symmetrical. SKIN: Shows warm and dry, good turgor. No edema. No sores, rashes or bruising throughout. Procedure: Procedure: Options were discussed with the patient. Patient's old chart was reviewed his current medication regimen updated current review of systems updated today as well. We will proceed with refill of patient's oxycodone as well as Ambien patient was given instructions well side effects aware of each of medications. Patient has had appropriate K tracks report as well as appropriate urinalyses to date and we will make this a 30-day refill. Patient will follow up in approximate 30 days as scheduled. Medication Injected: Med Injected: None Condition at Discharge: Condition at Discharge: Condition at discharge is stable. PRAVEEN BANEGAS MD May 28, 2021 08:41
== END | disposition home or self-care (01) ==
LOC: PNCL 08:03
PROVIDERS: ATTEND Anesthesiology
DX: M96.1 Postlaminectomy syndrome, not elsewhere classified (principal); M54.16 Radiculopathy, lumbar region; M46.1 Sacroiliitis, not elsewhere classified; Z79.82 Long term (current) use of aspirin; Z79.84 Long term (current) use of oral hypoglycemic drugs; Z79.899 Other long term (current) drug therapy; Z88.8 Allergy status to other drugs, medicaments and biological substances
CPT/HCPCS: 99212; G0463

== ENCOUNTER → 2021-06-23 | Outpatient (CLI) | payer MEDICARE ==
--- NOTE | 2021-06-23 13:53 | NUR ---
Patient called for a med refill. Verified name, , pharmacy, and next appointment. patient denies new medications, new medical problems, or new allergies. Patient states his pain level is a 7. [facility] is correct. call transfered to Dr Nieves.
--- NOTE | 2021-06-23 14:46 | PDOC ---
Progress Note - Pain Clinic Date of Service: DOS: DATE: 06/23/21 TIME: 14:45 Diagnosis: Dx: Lumbar radiculopathy with lumbar postlaminectomy syndrome Cervical postlaminectomy syndrome Left sacroiliitis History or Present Illness: HPI: Telemedicine visit today with patient's identity verified with full name as well as full date of , total time spent 14 minutes, telephone voice only 61-year-old male via telemedicine visit today requesting refill of oxycodone and Ambien. Patient reports he is doing very well and has been on stable regimen with medication with approximately 75% improvement with the medication with the chronic low back pain as well as a chronic neck and upper extremity pain patient reports that he is doing fairly well with the medication and reports no side effects currently. Patient is maintain hydration as well as stretching strengthening exercises daily and walking as much as he can tolerate which is only for about 2030 minutes at a time every other day or so. Patient reports he can doing some recent traveling which has been reasonably comfortable with the medication regimen again has had appropriate K tracks reporting as well as appropriate urinalyses to date. We discussed options with patient and we will refill patient's medication both oxycodone and Ambien patient was given instructions well side effects aware of each of the medications. Patient to follow-up in approximate 30 days as scheduled. Physical Exam: PE: PRAVEEN BANEGAS MD Jun 23, 2021 14:46
== END | disposition home or self-care (01) ==
LOC: PNCL 11:54
PROVIDERS: ATTEND Anesthesiology
DX: M96.1 Postlaminectomy syndrome, not elsewhere classified (principal); M54.16 Radiculopathy, lumbar region; M46.1 Sacroiliitis, not elsewhere classified; Z79.82 Long term (current) use of aspirin; Z79.84 Long term (current) use of oral hypoglycemic drugs; Z79.899 Other long term (current) drug therapy; Z88.8 Allergy status to other drugs, medicaments and biological substances
CPT/HCPCS: 99212; G0463

== ENCOUNTER → 2021-07-28 | Outpatient (CLI) | payer MEDICARE ==
--- NOTE | 2021-07-28 08:29 | PDOC ---
Progress Note - Pain Clinic Date of Service: DOS: DATE: 07/28/21 TIME: 08:25 Diagnosis: Dx: Lumbar radiculopathy lumbar postlaminectomy syndrome Cervical postlaminectomy syndrome Left sacroiliitis History or Present Illness: HPI: 61-year-old male returns for follow-up status post medication management with oxycodone and Ambien for sleep. Patient reports he is doing very well Chas very stable regimen with the medication no side effects reports about a 75 to 80% improvement with the medications in the low back and neck pain. Patient reports some increased pain with recent weather changes has been somewhat rainy but otherwise maintaining his activity and adequate level where he is content patient reports pain is a 9 on scale 10 is worse over the past week 7 on average 7 its least and is a 7 today patient describes as tingling burning the base of neck and shoulders aching and dull tight in the back with radiating pain in the right leg posterior gluteus and posterior thigh can be severe and constant at times with standing walking changing positions but better with sitting or laying down and only wakes him to sleep about once a night closely usually reposition and get back to sleep. Patient also using heat applications for the low back as well as medication to soothe the pain which does help to moderate extent as well. Patient reports no side effects of medications no new motor or sensory deficits no bowel or bladder incontinence. Physical Exam: VS: Blood pressure is 126/76 pulse 68 respirations 18 temperature 98.9 F height is 6 foot weight is 269 pounds. PE: PHYSICAL EXAMINATION: GENERAL: The patient is awake, alert, oriented, appropriate, very pleasant in demeanor HEENT: Shows normocephalic, atraumatic. Extraocular movements are intact and symmetrical. Oral cavity: Mucous membranes moist and pink. Dentition is intact. NECK: Shows anterior throat supple without palpable lymphadenopathy noted. Swallow reflex symmetrical. CHEST: Shows normal on inspection. Breath sounds are clear bilaterally. HEART: Shows S1, S2 clear. No murmurs auscultated. ABDOMEN: Soft, nontender, nondistended. No palpable organomegaly is noted. BACK: Shows spine grossly in the midline. Normal-appearing cervical lordotic curvature. Cervical paraspinous muscles show symmetrical inspection, on palpation some moderate tenderness diffusely bilaterally diffusely without significant radiation. Patient shows good rotation motion cervical spine both laterally as well as extension flexion without significant difficulty or loss of radiation. There is slightly increased thoracic kyphosis, some flattening of the lumbar lordotic curvature, with well-healed surgical scarring noted.. Lumbar paraspinous muscles show symmetrical on inspection, on palpation shows some moderate tenderness diffusely throughout the upper, middle and lower distribution of the paraspinous muscles without specific trigger points, without radiation of pain. The patient has good rotational motion of the lumbar spine, both laterally as well as extension and flexion without significant difficulty. EXTREMITIES: Lower extremities show deep tendon reflexes 1+ in the patellar and tendo calcaneus tendons. Motor exam is 4 on a scale of 5 with right dorsiflexion, extension, quadriceps and hamstring flexion and 4/5 on the left. Peripheral pulses are 1+ posterior tibial. No peripheral edema is noted bilaterally. Lower extremities are warm and dry to touch, equal in color and appearance. 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 SKIN: Shows warm and dry, good turgor. No edema. No sores, rashes or bruising throughout. Procedure: Procedure: Options were discussed with the patient. Patient's old chart was reviewed his his current medication regimen updated current review of systems updated today as well. We will prescribe patient's current medications of oxycodone 20 mg as well as Ambien for sleep, patient was given instructions well side effects beware of each of the medications. Patient has had appropriate K tracks report as well as appropriate urinalyses to date as well and we will make this a 30-day prescription. Patient will follow-up in 30 days as scheduled. Medication Injected: Med Injected: None Condition at Discharge: Condition at Discharge: Condition at discharge is stable. PRAVEEN BANEGAS MD July 28, 2021 08:29
== END | disposition home or self-care (01) ==
LOC: PNCL 07:50
PROVIDERS: ATTEND Anesthesiology
DX: M96.1 Postlaminectomy syndrome, not elsewhere classified (principal); M54.16 Radiculopathy, lumbar region; M46.1 Sacroiliitis, not elsewhere classified; Z79.82 Long term (current) use of aspirin; Z79.84 Long term (current) use of oral hypoglycemic drugs; Z79.899 Other long term (current) drug therapy
CPT/HCPCS: 99212; G0463